=== PATIENT | female | born 1970 | race Caucasian/White ===

== ENCOUNTER → 2018-10-08 07:02 | Outpatient (CLI) | payer OTHER, MEDICAID, SELFPAY ==
[2018-10-08 09:04] LABS: Add Manual Diff / Slide Review NO; Basophils Absolute Auto 0 /uL (0-100); Basophils Percent Auto 0.5 % (0-2); Eosinophils Absolute Auto 100 /uL (0-450); Eosinophils Percent Auto 1.3 % (2-4); Hemoglobin 12.4 g/dL (12.0-16.0); Lymphocytes Absolute Auto 1400 /uL (1100-4500); Lymphocytes Percent Auto 28.9 % (25-40); Mean Corpuscular HGB Conc 33.4 % (30-36); Mean Corpuscular Volume 92.8 fL (80-100); Monocytes Absolute Auto 300 /uL (0-900); Monocytes Percent Auto 7.1 % (3-14); Neutrophils Absolute Auto 3000 /uL (1500-7000); Neutrophils Percent Auto 62.2 % (50-75); Platelet Count 240 X10^3/uL (150-400); Red Blood Cell Count 3.99 X10^6/uL (4.0-5.2); White Blood Cell Count 4.9 X10^3/uL (4.5-11.0)
[2018-10-08 09:11] LABS: Alanine Aminotransferase 26 IU/L (9-52); Albumin 4.4 g/dL (3.5-5.0); Albumin Globulin Ratio 1.7 (1.0-2.8); Alkaline Phosphatase 31 U/L (38-126); Aspartate Aminotransferase 26 IU/L (14-36); Bilirubin Total 0.6 mg/dL (0.2-1.3); Blood Urea Nitrogen 9 mg/dL (7-17); Calcium 9.2 mg/dL (8.4-10.2); Carbon Dioxide 29 mmol/L (22-32); Chloride 102 mmol/L (98-107); Cholesterol 176 mg/dL (140-199); Estimated Glomerular Filt Rate > 60.0 mL/min (>60); Globulin 2.6 g/dL (1.7-4.1); Glucose 85 mg/dL (70-100); HDL Cholesterol 65 mg/dL (40-60); HEMOLYSIS < 15 (0-50); LDL Cholesterol Calculated 102 mg/dL (<100); Potassium 4.3 mmol/L (3.4-5.1); Sodium 139 mmol/L (137-145); Triglycerides 46 mg/dL (35-150)
[2018-10-08 09:55] LABS: Free T4, Direct Thyroxine 0.82 ng/dL (0.78-2.19)
[2018-10-08 10:25] LABS: Thyroid Stimulating Hormone 3.15 uIU/mL (0.47-4.68)
[2018-10-09 14:05] LABS: Thyroid Peroxidase Antibodies 1 IU/mL (< 9)
== END ==
PROVIDERS: Family Provider Internal Medicine; PCP Internal Medicine
DX: Z13.228 Encounter for screening for other metabolic disorders (principal); Z13.220 Encounter for screening for lipoid disorders; Z13.0 Encounter for screening for diseases of the blood and blood-forming organs and certain disorders involving the immune mechanism; Z13.29 Encounter for screening for other suspected endocrine disorder
CPT/HCPCS: 36415; 80053; 80061; 84439; 84443; 84481; 85025; 86376

== ENCOUNTER → 2020-06-24 09:56 | Outpatient (CLI) | payer OTHER, MEDICAID, SELFPAY ==
[2020-06-24 10:52] LABS: COVID19 -Nasal RAPID Negative (Negative)
== END ==
PROVIDERS: Family Provider Nurse Practitioner Family; PCP Nurse Practitioner Family; Visit Provider Surgery
DX: Z01.812 Encounter for preprocedural laboratory examination (principal); Z20.828 Contact with and (suspected) exposure to other viral communicable diseases
CPT/HCPCS: 87635; C9803

== ENCOUNTER 2020-06-25 06:42 | Day surgery (SDC) | payer OTHER, MEDICAID, SELFPAY ==
[2020-06-25] VITALS (7 sets, daily range): BP systolic 90–126; BP diastolic 51–71; PULSE 56–78; RESP 12–16; TEMP 36.6–36.7; O2SAT 99–100; BMI 22.3
[2020-06-25] MEDS: SODIUM CHLORIDE 0.9% 1,000 ML 200 ML IV (07:11)
--- NOTE | 2020-06-25 07:38 | PM.HP.1 ---
History of Present Illness History of Present Illness Date Patient Seen: 06/25/20 Time Patient Seen: 07:38 Chief complaint: [facility] [place] Narrative: This is a 50-year-old woman who has never had a colonoscopy. She has history of migraines, social phobia, PVCs, irregular menstrual cycle, anxiety, allergies, eczema. She comes in with a complaint of difficulty passing her stools for the last few months. She says that she ?loses momentum? and is not able to complete having a bowel movement. She has recently started pelvic floor physiotherapy. She has not seen a black ash burner operator doctor to rule out rectocele. She has never been or given . She denies any incontinence of urine, she denies any incontinence of stool, she denies any melena, hematochezia, anal pain with bowel movements. She does report an occasional hemorrhoid, which presents as irritation and discomfort of the anal area. She says she has a very high fiber diet, and takes to level 2 tbsp of psyllium husk in 8 oz of water twice daily. She denies prolonged sitting on the toilet, but says it may take her 5 minutes to have a bowel movement because of difficulty ?passing everything.? She would sometimes digitally disimpact herself, but has stopped doing that since her primary care provider recommended that she stop doing that. She has no known family history of colon polyps or colon cancers, but she says her mother has never had a colonoscopy. ROS: Positive for night sweats, lower extremity swelling, changes in bowel habits, irregular menses, Thirteen system review is otherwise negative other than as mentioned below and in HPI. PE: GENERAL: Well groomed and cooperative. Appears stated age. Answers questions promptly and appropriately. Vital signs noted. HENT: Normocephalic, atraumatic. Hearing intact. EYES: Conjunctiva pink, sclera white, no periorbital swelling. CARDIOVASCULAR: Regular rate. No pedal edema. RESPIRATORY: Non-tachypneic, breathing comfortably on room air. GASTROINTESTINAL: Abdomen soft and non-distended GENITALURINARY: No flank tenderness. MUSCULOSKELETAL: Equal tone and mass bilaterally. SKIN: Warm, dry, soft, appropriate color for ethnicity. No other lesions, rashes, or wounds. NEURO: Alert and Oriented X 3. No gross sensory deficits, or cognitive issues. PSYCH: Appropriate affect and mood. Patient History Medical History Abnormal Pap smear of cervix (~1999) Allergic reaction to bee sting Allergic rhinitis (06/06/17) Allergies (~1999) Anxiety (~1989) Eczema Frequent ventricular premature beats (09/30/14) H/O migraine Hemorrhoids (09/30/14) Human papilloma virus (~1999) Incomplete passage of stool Irregular menstrual cycle (~2017) Migraines (~2017) PVCs (premature ventricular contractions) (~2016) Screening for malignant neoplasm of colon Social phobia (09/30/14) Surgical History Anesthesia History of breast augmentation (~1991) History of tonsillectomy (~1970) Status post breast biopsy (~2012) Status post laparoscopy (~1996) Status post loop electrosurgical excision procedure (LEEP) of cervix (~1996) Family & Social History Family History Father Age: 98 Hypertension Arthritis Pernicious anemia Spinal stenosis Grandfather Hypertension High cholesterol Grandmother Enlarged heart Mother Age: 96 Hypertension High cholesterol Fibromyalgia Arthritis Sister Age: 53 Arthritis Bradycardia Sick sinus syndrome Sister Age: 57 Obese Mental health problem Sister Age: 67 Meniere disease Osteopenia Osteoarthritis Tobacco & Substance use: Smoking Status Former smoker alcohol intake current Meds Home Medications and Allergies Home Medications Medication Instructions Recorded Confirmed Type propranolol 20 mg tablet 20 mg PO SEE INSTRUCTIONS PRN #30 04/19/18 06/25/20 Rx tab ascorbate calcium (vitamin C) 500 1 gram PO DAILY tab 05/20/20 06/25/20 History mg tablet biotin 2,500 mcg capsule 5,000 mcg PO DAILY 05/20/20 06/25/20 History black cohosh 200 mg capsule 125 mg PO QID 05/20/20 06/25/20 History npsohfz-navnpuqvi-sdim tablet 0.66 tab PO DAILY 05/20/20 06/25/20 History cetirizine 10 mg capsule 10 mg PO DAILY PRN 05/20/20 06/25/20 History cholecalciferol (vitamin D3) 250 125 mcg PO 2XW 05/20/20 06/25/20 History mcg (10,000 unit) capsule glucosamine HCl 750 mg tablet 750 mg PO BID tab 05/20/20 06/25/20 History multivitamin with iron 1 tab PO DAILY 05/20/20 06/25/20 History red clover 1,000 mg capsule 500 mg PO DAILY 05/20/20 06/25/20 History vitamin B complex 1 cap PO DAILY 05/20/20 06/25/20 History melatonin 3 mg PO BEDTIME PRN 06/25/20 06/25/20 History sumatriptan succinate See Rx Instructions .ROUTE .COMPLEX 06/25/20 06/25/20 History Allergies Allergy/AdvReac Type Severity Reaction Status Date / Time adhesive AdvReac Mild Rash Verified 06/25/20 07:09 Exam Vital Signs (past 8 hours): - 06/25/20 07:26 Temperature 98.0 F Pulse Rate 70 Respiratory Rate 14 Blood Pressure 126/71 Pulse Oximetry 100 Oxygen Delivery Method Room Air Assessment & Plan Assessment and plan (1) Screening for malignant neoplasm of colon: Status: Acute (2) Incomplete passage of stool: Problem details: intermittent Status: Acute Assessment & Plan narrative: Risks and benefits of screening colonoscopy and possible polypectomy were discussed with the patient including risk of bleeding, perforation, need for additional procedures, risks of anesthesia. The patient desires to proceed with the colonoscopy procedure. COVID-19 COVID-19 status: Negative Result date/Date tested (Pos, Neg/Pending): 06/24/20 Time Spent With Patient Time with patient: 15-24 minutes Quality VTE Deep Vein Thrombosis/Pulmonary Embolism Present on Admission: No
--- NOTE | 2020-06-25 07:43 | P.OP.ENDO_ITS ---
Operative Date/Time/Diagnoses Date of procedure: 06/25/20 Time of procedure: 07:47 Pre-op diagnosis: Average risk for colon cancer, never had a screening colonoscopy Post-op diagnosis: other (Normal colon) Procedure & Clinicians Study performed: Colonoscopy Procedural sedation performed by the endoscopy Same procedure as scheduled: Yes Indications: Average risk of colon cancer, never had a screening colonoscopy Surgeon: Thalia Garcia Procedure Notes SCOAP/Timeout: Performed Procedure in detail: The patient was brought to the room and placed in left lateral decubitus position with all bony prominences padded. A time-out was performed and then the patient was given procedural sedation starting with 4 mg of Versed and 100 mcg of fentanyl. Total of 10 mg of Versed and 200 micro g of fentanyl were given for the entire procedure. Vitals were monitored throughout the procedure and remained stable. Once adequately sedated, the procedure was begun. A rectal exam was performed revealing no abnormalities. The colonoscope was then introduced to the rectum and advanced to the cecum in the usual fashion. The cecum was identified by the appendiceal orifice, the mucosal tri- fold, and the ileocecal valve. The scope was then retracted while rotating side to side and examining each mucosal fold. No polyps, masses, or diverticula were seen. At the conclusion of the procedure retroflexion was performed and small grade 1-2 internal hemorrhoids without stigmata of bleeding were seen. The scope was then withdrawn from the rectum the procedure was concluded. The patient tolerated the procedure well and was transferred to the PACU in stable condition. Scope withdrawal time: 8 Sedation minutes: 27 Specimen(s): none sent Complications: none Impression: Normal colon Post-procedure Recommendations: Colonscopy in 10 years (Unless otherwise clinically indicated) Follow up: as needed Disposition: PACU
[2020-06-25] MEDS: fentaNYL 250 MCG/5 ML INJ IV (08:07)
[2020-06-25] MEDS: MIDAZOLAM 5 MG/5 ML VIAL IV (08:07)
--- NOTE | 2020-06-25 09:01 | SUR.PHASEII ---
Stable Phase 2, VSS, no dizziness, belly soft and tolerating juice. Pt dressed when ready and left in stable condition.
== END 2020-06-25 09:08 | disposition home or self-care (01) ==
PROVIDERS: Family Provider Nurse Practitioner Family; PCP Nurse Practitioner Family; Referring Provider Nurse Practitioner Family; Visit Provider Surgery
PROC: 0DJD8ZZ Inspection of Lower Intestinal Tract, Via Natural or Artificial Opening Endoscopic (ICD-10-PCS; CPT 45378; principal; 2020-06-25 07:45)
DX: Z12.11 Encounter for screening for malignant neoplasm of colon (principal); K64.0 First degree hemorrhoids
CPT/HCPCS: 45378; 99152; 99153; J2250; J3010

== ENCOUNTER 2020-08-31 13:45 | Outpatient (RCR) | payer OTHER, MEDICAID, SELFPAY ==
--- NOTE | 2020-06-22 13:45 | PT.OPPOC ---
Physical, Occupational & Speech Therapy At [facility] Current Diagnoses Incomplete defecation (06/22/20) Visit Care Team Role Provider Type EDILIA Hameed Attending Provider Advanced Commercial Ocean Clammer Family Provider Primary Care Provider Referring Provider Specialty: Family Practice Address: [address] [place] [address], [id number] Email: [email or web address] Plan Of Care PT-OP-T Assessment and Plan Start: 06/22/20 13:01 Freq: Status: Active Protocol: Document 06/22/20 13:00 [facility] (Rec: 06/30/20 11:07 [facility] [id number]) Physical Therapy Assessment Goals pt is lacking a home program for her pelvic floor Impairment Elli is lacking a program for her pelvic floor Mcfp Goal (LTG) Elli is educated on both relaxed awareness of her pelvic floor and ability to sustain a contraction of her pelvic floor for 10 seconds to provide good support for the rectum. LTG Duration 8 weeks myofascial restrictions in the diaphragm and large intestine Impairment myofascial restrictions in the colon and large intestines Signaling Design Engineer Goal (LTG) Improve mobility of the diaphragm and fascia over the large intestines. LTG Duration 8 weeks Inablility to fully empty the bowels Impairment inability to fully empty the bowels Mcfp Goal (LTG) Using self massage techniques, squatty potty, diaphragmatic breathing, pelvic floor relaxation Elli is able to fully empty her bowels LTG Duration 8 weeks Assessment Summary Assessment Elli is a 50 year old female who presents to PT today with difficulty fully passing her stools the past few months. She states she looses momentum and is not able to fully empty her bowels . She is set for a colonoscopy as she has never had one. She denies any incontinence of urine or stool . Elli was not aware we would be doing a pelvic exam today in PT and wished to wait until her next visit to do so . She denies any pelvic pressure or heaviness but I will assess for a rectocele and if she has any pelvic floor guarding. She did have myofascial restrictions across her abdomen and had difficulty with diaphragm excursion with deep breathing. She also had tension in the fascia over her colon. She was shown a self massage over her colon today to help facilitate bowl movements, shown how to use a squatty potty to help align her descending colon, and diaphragmatic breathing. Next visit her pelvic floor will be assessed as well. Physical Therapy Plan Frequency and Duration Frequency of Treatment 1x/Week Duration of Treatment 8 Plan of Care Start Date 06/22/20 Plan of Care End Date 08/17/20 Therapeutic Interventions Therapeutic Interventions Home Exercise Program,Manual Therapy,Neuromuscular Re- education,Self-Care/Home Management,Therapeutic Exercises Modalities Biofeedback Plan of Care Dates Plan of Care Start Date 06/22/20 Plan of Care End Date 08/17/20 Electronically Signed by: Neisha Rice, PT 06/30/20 [id number] Please Sign and Return: I have reviewed this Plan of Care and certify that the skilled therapy services above are required to meet the patient?s needs. Physician Signature Date Printed Name and Credentials Clinical Instructor Signature Printed Name and Credentials
--- NOTE | 2020-06-22 13:45 | PT.OIE ---
Current Diagnoses Incomplete defecation (06/22/20) Past Medical History (Last Reviewed 06/25/20 @ 07:40 by Thalia Garcia MD) Abnormal Pap smear of cervix (~1999) Allergic reaction to bee sting Allergic rhinitis (06/06/17) Allergies (~1999) Anxiety (~1989) Eczema Frequent ventricular premature beats (09/30/14) H/O migraine Hemorrhoids (09/30/14) Human papilloma virus (~1999) Incomplete passage of stool Irregular menstrual cycle (~2017) Migraines (~2017) PVCs (premature ventricular contractions) (~2016) Screening for malignant neoplasm of colon Social phobia (09/30/14) Past Surgical History (Last Reviewed 06/25/20 @ 07:40 by Thalia Garcia MD) Anesthesia History of breast augmentation (~1991) History of tonsillectomy (~1970) Status post breast biopsy (~2012) Status post laparoscopy (~1996) Status post loop electrosurgical excision procedure (LEEP) of cervix (~1996) Visit Care Team Role Provider Type EDILIA Hameed Attending Provider Advanced Finish Patcher Family Provider Primary Care Provider Referring Provider Specialty: Family Practice Address: [address] [place] [address] Email: [email or web address] Physical Therapy Initial Evaluation PT-OP-A Visit Information Start: 06/22/20 13:01 Freq: Status: Active Protocol: Document 06/22/20 17:20 [facility] (Rec: 06/22/20 17:21 [facility] [id number]) Out-Patient Physical Therapy Visit Information Visit Information Visit Type Initial Evaluation Visit Start Time 13:00 Visit Stop Time 13:45 Total Visit Minutes 45 Visit Number 1 Evaluation Information Evaluation Date 06/22/20 PT-OP-B Current Condition Start: 06/22/20 13:01 Freq: Status: Active Protocol: Document 06/22/20 13:02 [facility] (Rec: 06/22/20 13:21 [facility] [id number]) Current Condition History of Current Condition Onset Date 6 months ago. Current Complaints not fully emptying her bowels History of Current Condition pt complaints the urge for a bowel movement can be strong but then she loses momentum and she feels like is not fully emptying. It is not every time but it is new enough. She will have a colonoscopy and and did have a rectal exam. Dr. Zamora at [facility]. She has noticed some increase in intensity of urgency to void. Hx of tubal sterilization, leap procedure 1996. PT-OP-I Pelvic Floor Start: 06/22/20 13:01 Freq: Status: Active Protocol: Document 06/22/20 13:00 [facility] (Rec: 06/30/20 11:07 [facility] [id number]) Pelvic Floor Assessment Bowel Bowel Surgery No Other Bowel Symptoms pt reports she looses momentum when she has a bowel movement and is not able to fully empty her bowels. She does report a occasional hemorrhoid which presents as a irritation and discomfort of the anal area Bowel Movement Frequency one per day PT-OP-J Posture/Palpation/Skin Start: 06/22/20 13:01 Freq: Status: Active Protocol: Document 06/22/20 13:00 [facility] (Rec: 06/30/20 11:07 [facility] [id number]) Palpation Assessment Location suprapubic fascia Palpation Location myofascial tightness over the suprapubic fascia over the bladder Palpation Findings Soft Tissue Tightness large intestine Palpation Location palpation over the large intestine via the abdominal wall Palpation Findings Soft Tissue Tightness Palpation Details soft tissue tightness in fascia over the transverse and descending colon. PT-OP-M Strength Start: 06/22/20 13:01 Freq: Status: Active Protocol: Document 06/22/20 13:00 [facility] (Rec: 06/30/20 11:07 [facility] [id number]) Trunk Strength Trunk Manual Muscle Testing Core Stabilization pelvic floor needs assessment, pt would like to wait until the next visit for this Comments decreased diaphragmatic excursion and tightness of the diaphragm PT-OP-T Assessment and Plan Start: 06/22/20 13:01 Freq: Status: Active Protocol: Document 06/22/20 13:00 [facility] (Rec: 06/30/20 11:07 [facility] [id number]) Physical Therapy Assessment Goals pt is lacking a home program for her pelvic floor Impairment Elli is lacking a program for her pelvic floor Fdc Goal (LTG) Elli is educated on both relaxed awareness of her pelvic floor and ability to sustain a contraction of her pelvic floor for 10 seconds to provide good support for the rectum. LTG Duration 8 weeks myofascial restrictions in the diaphragm and large intestine Impairment myofascial restrictions in the colon and large intestines Fdc Goal (LTG) Improve mobility of the diaphragm and fascia over the large intestines. LTG Duration 8 weeks Inablility to fully empty the bowels Impairment inability to fully empty the bowels Clerical Warehouseman Goal (LTG) Using self massage techniques, squatty potty, diaphragmatic breathing, pelvic floor relaxation Elli is able to fully empty her bowels LTG Duration 8 weeks Assessment Summary Assessment Elli is a 50 year old female who presents to PT today with difficulty fully passing her stools the past few months. She states she looses momentum and is not able to fully empty her bowels . She is set for a colonoscopy as she has never had one. She denies any incontinence of urine or stool . Elli was not aware we would be doing a pelvic exam today in PT and wished to wait until her next visit to do so . She denies any pelvic pressure or heaviness but I will assess for a rectocele and if she has any pelvic floor guarding. She did have myofascial restrictions across her abdomen and had difficulty with diaphragm excursion with deep breathing. She also had tension in the fascia over her colon. She was shown a self massage over her colon today to help facilitate bowl movements, shown how to use a squatty potty to help align her descending colon, and diaphragmatic breathing. Next visit her pelvic floor will be assessed as well. Physical Therapy Plan Frequency and Duration Frequency of Treatment 1x/Week Duration of Treatment 8 Plan of Care Start Date 06/22/20 Plan of Care End Date 08/17/20 Therapeutic Interventions Therapeutic Interventions Home Exercise Program,Manual Therapy,Neuromuscular Re- education,Self-Care/Home Management,Therapeutic Exercises Modalities Biofeedback
--- NOTE | 2020-07-13 16:48 | PT.OTN ---
Current Diagnoses Incomplete defecation (07/13/20) Physical Therapy Treatment Note PT-OP-A Visit Information Start: 06/22/20 13:01 Freq: Status: Active Protocol: Document 07/13/20 16:26 [facility] (Rec: 07/13/20 16:48 [facility] [id number]) Out-Patient Physical Therapy Visit Information Visit Information Visit Type Treatment Note Visit Start Time 15:20 Visit Stop Time 16:05 Total Visit Minutes 45 Visit Number 2 PT-OP-B Current Condition Start: 06/22/20 13:01 Freq: Status: Active Protocol: Document 06/22/20 13:02 [facility] (Rec: 06/22/20 13:21 [facility] [id number]) Current Condition History of Current Condition Onset Date 6 months ago. Current Complaints not fully emptying her bowels History of Current Condition pt complaints the urge for a bowel movement can be strong but then she loses momentum and she feels like is not fully emptying. It is not every time but it is new enough. She will have a colonoscopy and and did have a rectal exam. Dr. Zamora at [facility]. She has noticed some increase in intensity of urgency to void. Hx of tubal sterilization, leap procedure 1996. PT-OP-C Subjective Start: 06/22/20 13:01 Freq: Status: Active Protocol: Document 07/13/20 16:26 [facility] (Rec: 07/13/20 16:48 [facility] [email or web address]) OP-PT Subjective Patient Comments Patient Comments Elli reports she had her colonoscopy and it was negative. She has tried the ILU massage, no change in symptoms at this point. She does report that she tends to clench her pelvis region and abdominal wall PT-OP-I Pelvic Floor Start: 06/22/20 13:01 Freq: Status: Active Protocol: Document 06/22/20 13:00 [facility] (Rec: 06/30/20 11:07 [facility] [id number]) Pelvic Floor Assessment Bowel Bowel Surgery No Other Bowel Symptoms pt reports she looses momentum when she has a bowel movement and is not able to fully empty her bowels. She does report a occasional hemorrhoid which presents as a irritation and discomfort of the anal area Bowel Movement Frequency one per day PT-OP-J Posture/Palpation/Skin Start: 06/22/20 13:01 Freq: Status: Active Protocol: Document 06/22/20 13:00 [facility] (Rec: 06/30/20 11:07 [facility] [email or web address]) Palpation Assessment Location suprapubic fascia Palpation Location myofascial tightness over the suprapubic fascia over the bladder Palpation Findings Soft Tissue Tightness large intestine Palpation Location palpation over the large intestine via the abdominal wall Palpation Findings Soft Tissue Tightness Palpation Details soft tissue tightness in fascia over the transverse and descending colon. PT-OP-M Strength Start: 06/22/20 13:01 Freq: Status: Active Protocol: Document 06/22/20 13:00 [facility] (Rec: 06/30/20 11:07 [facility] [id number]) Trunk Strength Trunk Manual Muscle Testing Core Stabilization pelvic floor needs assessment, pt would like to wait until the next visit for this Comments decreased diaphragmatic excursion and tightness of the diaphragm PT-OP-Q Treatments Start: 06/22/20 13:01 Freq: Status: Active Protocol: Document 07/13/20 16:26 [facility] (Rec: 07/13/20 16:48 [facility] [id number]) Therapeutic Exercises Supine Exercises pelvic floor long holds Supine Exercise Name long holds x 10 second hold and 10 second relax Comments average work on EMG biofeedback us 18.2 and max of 56.2 Manual Therapy Treatment Manual Techniques manual pelvic floor evaluation Type manual pelvic floor assessment Comments rectocele present grade 1 , pt able to contract all landeros of the levator ani but is weaker in the posterior wall Self-Care/Home Management Treatment Education Patient Education Home Exercise Program Other Education pt was educated on elevating her pelvis to decompress the pelvic organs PT-OP-T Assessment and Plan Start: 06/22/20 13:01 Freq: Status: Active Protocol: Document 07/13/20 16:26 [facility] (Rec: 07/13/20 16:48 [facility] [email or web address]) Physical Therapy Assessment Assessment Summary Assessment Elli is able to facilitate all parts of her pelvic floor but tested 3/5 MMT for the posterior wall and presented with a grade 1 rectocele. She lacks full endurance of the pelvic floor and tends to substitute with her glutes and abs for pelvic floor contraction. She was educated in decompressing the pelvis with a yoga block to take pressure off her pelvic organs. Physical Therapy Plan Frequency and Duration Frequency of Treatment 1x/Week Duration of Treatment 8 Plan of Care Start Date 06/22/20 Plan of Care End Date 08/17/20 Next Visit Focus/Plan Next Note Type Treatment Note Next Visit Plan trial of pelvic floor work over the bolster, watch abdominal wall for substitution, MFR over the abdominal wall, diaphragm
--- NOTE | 2020-07-20 17:27 | PT.OTN ---
Current Diagnoses Incomplete defecation (07/20/20) Physical Therapy Treatment Note PT-OP-A Visit Information Start: 06/22/20 13:01 Freq: Status: Active Protocol: Document 07/20/20 15:21 [facility] (Rec: 07/20/20 15:29 [facility] [id number]) Out-Patient Physical Therapy Visit Information Visit Information Visit Type Treatment Note Visit Start Time 15:15 Visit Stop Time 16:00 Total Visit Minutes 45 Visit Number 3 PT-OP-B Current Condition Start: 06/22/20 13:01 Freq: Status: Active Protocol: Document 06/22/20 13:02 [facility] (Rec: 06/22/20 13:21 [facility] [id number]) Current Condition History of Current Condition Onset Date 6 months ago. Current Complaints not fully emptying her bowels History of Current Condition pt complaints the urge for a bowel movement can be strong but then she loses momentum and she feels like is not fully emptying. It is not every time but it is new enough. She will have a colonoscopy and and did have a rectal exam. Dr. Zamora at [facility]. She has noticed some increase in intensity of urgency to void. Hx of tubal sterilization, leap procedure 1996. PT-OP-C Subjective Start: 06/22/20 13:01 Freq: Status: Active Protocol: Document 07/20/20 15:21 [facility] (Rec: 07/20/20 15:29 [facility] [id number]) OP-PT Subjective Patient Comments Patient Comments She notes things are improving a little bit, has gotten her hips a little higher when sitting on the toilet and this has helped. Aug 11 she see' s Gail Duval for a recheck Patient Reported Progress Improving PT-OP-I Pelvic Floor Start: 06/22/20 13:01 Freq: Status: Active Protocol: Document 06/22/20 13:00 [facility] (Rec: 06/30/20 11:07 [facility] [id number]) Pelvic Floor Assessment Bowel Bowel Surgery No Other Bowel Symptoms pt reports she looses momentum when she has a bowel movement and is not able to fully empty her bowels. She does report a occasional hemorrhoid which presents as a irritation and discomfort of the anal area Bowel Movement Frequency one per day PT-OP-J Posture/Palpation/Skin Start: 06/22/20 13:01 Freq: Status: Active Protocol: Document 06/22/20 13:00 [facility] (Rec: 06/30/20 11:07 [facility] [id number]) Palpation Assessment Location suprapubic fascia Palpation Location myofascial tightness over the suprapubic fascia over the bladder Palpation Findings Soft Tissue Tightness large intestine Palpation Location palpation over the large intestine via the abdominal wall Palpation Findings Soft Tissue Tightness Palpation Details soft tissue tightness in fascia over the transverse and descending colon. PT-OP-M Strength Start: 06/22/20 13:01 Freq: Status: Active Protocol: Document 06/22/20 13:00 [facility] (Rec: 06/30/20 11:07 [facility] [id number]) Trunk Strength Trunk Manual Muscle Testing Core Stabilization pelvic floor needs assessment, pt would like to wait until the next visit for this Comments decreased diaphragmatic excursion and tightness of the diaphragm PT-OP-Q Treatments Start: 06/22/20 13:01 Freq: Status: Active Protocol: Document 07/20/20 17:18 [facility] (Rec: 07/20/20 17:27 [facility] [id number]) Therapeutic Exercises Supine Exercises pelvic floor long holds Supine Exercise Name long holds x 10 second hold and 10 second relax Comments average work on EMG biofeedback us 18.2 and max of 56.2 Manual Therapy Treatment Soft Tissue Mobilization MFR over the left side of the colon Body Location MFR left side of colon Mobilization Type Myofascial Release Body Position Supine Self-Care/Home Management Treatment Education Patient Education Home Exercise Program Other Education education on rectal prolapse, elevation of pelvis, castor oil pack on abdomen PT-OP-T Assessment and Plan Start: 06/22/20 13:01 Freq: Status: Active Protocol: Document 07/20/20 17:18 [facility] (Rec: 07/20/20 17:27 [facility] [id number]) Physical Therapy Assessment Assessment Summary Assessment Elli is reporting that she has been better able to fully empty her bowels. She feels like sidelying is better for her for pelvic floor contractions. She has a small amount of resting tone of the levator ani. She may benefit from happy baby pose to relax this fully. I worked on releasing the left side of the descending colon today as well. Physical Therapy Plan Frequency and Duration Frequency of Treatment 1x/Week Duration of Treatment 8 Plan of Care Start Date 06/22/20 Plan of Care End Date 08/17/20 Therapeutic Interventions Therapeutic Interventions Home Exercise Program,Manual Therapy,Neuromuscular Re- education,Self-Care/Home Management,Therapeutic Exercises Modalities Biofeedback Next Visit Focus/Plan Next Note Type Treatment Note Next Visit Plan MFR over the abdominal wall, happy baby, work into pelvic floor contractions with abdominal stabilization. Pt has 2 visits left then rechecks with her
--- NOTE | 2020-07-28 11:50 | PT.OTN ---
Current Diagnoses Incomplete defecation (07/27/20) Physical Therapy Treatment Note PT-OP-A Visit Information Start: 06/22/20 13:01 Freq: Status: Active Protocol: Document 07/27/20 15:15 [facility] (Rec: 07/28/20 11:35 [facility] [id number]) Out-Patient Physical Therapy Visit Information Visit Information Visit Type Treatment Note Visit Start Time 15:15 Visit Stop Time 16:00 Total Visit Minutes 45 Visit Number 4 PT-OP-B Current Condition Start: 06/22/20 13:01 Freq: Status: Active Protocol: Document 06/22/20 13:02 [facility] (Rec: 06/22/20 13:21 [facility] [id number]) Current Condition History of Current Condition Onset Date 6 months ago. Current Complaints not fully emptying her bowels History of Current Condition pt complaints the urge for a bowel movement can be strong but then she loses momentum and she feels like is not fully emptying. It is not every time but it is new enough. She will have a colonoscopy and and did have a rectal exam. Dr. Zamora at [facility]. She has noticed some increase in intensity of urgency to void. Hx of tubal sterilization, leap procedure 1996. PT-OP-C Subjective Start: 06/22/20 13:01 Freq: Status: Active Protocol: Document 07/27/20 15:24 [facility] (Rec: 07/27/20 15:24 [facility] [id number]) OP-PT Subjective Patient Comments Patient Comments pt reports she is getting into her routine with all her stretches and exercises. She has been working on trying to relax her abdominal muscles when sitting and standing at rest. She notes that her symptoms continue to improve and she is noting more of a full bowel movement now. Patient Reported Progress Improving PT-OP-I Pelvic Floor Start: 06/22/20 13:01 Freq: Status: Active Protocol: Document 06/22/20 13:00 [facility] (Rec: 06/30/20 11:07 [facility] [id number]) Pelvic Floor Assessment Bowel Bowel Surgery No Other Bowel Symptoms pt reports she looses momentum when she has a bowel movement and is not able to fully empty her bowels. She does report a occasional hemorrhoid which presents as a irritation and discomfort of the anal area Bowel Movement Frequency one per day PT-OP-J Posture/Palpation/Skin Start: 06/22/20 13:01 Freq: Status: Active Protocol: Document 06/22/20 13:00 [facility] (Rec: 06/30/20 11:07 [facility] [email or web address]) Palpation Assessment Location suprapubic fascia Palpation Location myofascial tightness over the suprapubic fascia over the bladder Palpation Findings Soft Tissue Tightness large intestine Palpation Location palpation over the large intestine via the abdominal wall Palpation Findings Soft Tissue Tightness Palpation Details soft tissue tightness in fascia over the transverse and descending colon. PT-OP-M Strength Start: 06/22/20 13:01 Freq: Status: Active Protocol: Document 06/22/20 13:00 [facility] (Rec: 06/30/20 11:07 [facility] [email or web address]) Trunk Strength Trunk Manual Muscle Testing Core Stabilization pelvic floor needs assessment, pt would like to wait until the next visit for this Comments decreased diaphragmatic excursion and tightness of the diaphragm PT-OP-Q Treatments Start: 06/22/20 13:01 Freq: Status: Active Protocol: Document 07/27/20 15:15 [facility] (Rec: 07/28/20 11:35 [facility] [email or web address]) Therapeutic Exercises Supine Exercises TA facilitation Supine Exercise Name TA facilitation, with marches and heel slides Comments pt demonstrating good contraction of the pelvic floor and TA happy baby Supine Exercise Name happy baby stretch pelvic floor long holds Supine Exercise Name long holds x 10 second hold and 10 second relax Comments average work on EMG biofeedback us 18.2 and max of 56.2 Manual Therapy Treatment Soft Tissue Mobilization MFR over the left side of the colon Body Location MFR left side of colon Mobilization Type Myofascial Release Body Position Supine Self-Care/Home Management Treatment Education Patient Education Home Exercise Program Caregiver Education pt to continue with self ILU massage, ther ex, squatty potty and gentle stretches as well as relaxed awareness of her lower abdominal wall and pelvic floor. PT-OP-T Assessment and Plan Start: 06/22/20 13:01 Freq: Status: Active Protocol: Document 07/27/20 15:25 [facility] (Rec: 07/27/20 16:08 [facility] [id number]) Physical Therapy Assessment Goals pt is lacking a home program for her pelvic floor Impairment Elli is lacking a program for her pelvic floor Waxed Bag Machine Operator Goal (LTG) Elli is educated on both relaxed awareness of her pelvic floor and ability to sustain a contraction of her pelvic floor for 10 seconds to provide good support for the rectum. GOAL MET LTG Duration 8 weeks myofascial restrictions in the diaphragm and large intestine Impairment myofascial restrictions in the colon and large intestines [facility] Goal (LTG) Improve mobility of the diaphragm and fascia over the large intestines. GOAL MET LTG Duration 8 weeks Inablility to fully empty the bowels Impairment inability to fully empty the bowels [facility] Goal (LTG) Using self massage techniques, squatty potty, diaphragmatic breathing, pelvic floor relaxation Elli is able to fully empty her bowels. Excellent progress as Elli notes it is becoming easier to fully empty her bowels. LTG Duration 8 weeks Assessment Summary Assessment Elli is making good overall progress with improved ability to fully empty her bowels. Treatment has focused on supporting her bowels with pelvic floor strengthening, toilet positioning with a squatty potty position to help with defecation, self abdominal massage, relaxed awareness of the pelvic floor and abdominal wall. She will continue to work on pelvic floor strengthening to help support the posterior wall of the pelvic floor and to give support to the rectum. Elli has a follow up visit with me in one month to progress pelvic floor strengthening in more upright positions. I will recheck the tone of her pelvic floor again at that time. Treatment will continue if needed for dynamic strengthening in upright positions. Thank you for this referral. Physical Therapy Plan Frequency and Duration Frequency of Treatment 1x/Week Duration of Treatment 8 Plan of Care Start Date 07/27/20 Plan of Care End Date 09/28/20 Therapeutic Interventions Therapeutic Interventions Home Exercise Program,Manual Therapy,Neuromuscular Re- education,Self-Care/Home Management,Therapeutic Exercises Modalities Biofeedback Next Visit Focus/Plan Next Note Type Treatment Note Next Visit Plan recheck tone and strength of the levator ani muscles, recheck for rectocele, begin work on upright positioning for strengthening the pelvic floor in dynamic positions
--- NOTE | 2020-07-28 11:50 | PT.OPPOC ---
Physical, Occupational & Speech Therapy At [facility] Current Diagnoses Incomplete defecation (07/27/20) Visit Care Team Role Provider Type EDILIA Hameed Attending Provider Advanced Black Leather Buffer Family Provider Primary Care Provider Referring Provider Specialty: Family Practice Address: [address] [place] [address], [id number] Email: [email or web address] Plan Of Care PT-OP-T Assessment and Plan Start: 06/22/20 13:01 Freq: Status: Active Protocol: Document 07/27/20 15:25 [facility] (Rec: 07/27/20 16:08 [facility] [id number]) Physical Therapy Assessment Goals pt is lacking a home program for her pelvic floor Impairment Elli is lacking a program for her pelvic floor Hot Strip Mill Inspector Goal (LTG) Elli is educated on both relaxed awareness of her pelvic floor and ability to sustain a contraction of her pelvic floor for 10 seconds to provide good support for the rectum. GOAL MET LTG Duration 8 weeks myofascial restrictions in the diaphragm and large intestine Impairment myofascial restrictions in the colon and large intestines Hot Strip Mill Inspector Goal (LTG) Improve mobility of the diaphragm and fascia over the large intestines. Excellent progress LTG Duration 8 weeks Inablility to fully empty the bowels Impairment inability to fully empty the bowels Hot Strip Mill Inspector Goal (LTG) Using self massage techniques, squatty potty, diaphragmatic breathing, pelvic floor relaxation Elli is able to fully empty her bowels. Excellent progress as Elli notes it is becoming easier to fully empty her bowels. LTG Duration 8 weeks Assessment Summary Assessment Elli is making good overall progress with improved ability to fully empty her bowels. Treatment has focused on supporting her bowels with pelvic floor strengthening, toilet positioning with a squatty potty position to help with defecation, self abdominal massage, relaxed awareness of the pelvic floor and abdominal wall. She will continue to work on pelvic floor strengthening to help support the posterior wall of the pelvic floor and to give support to the rectum. Elli has a follow up visit with me in one month to progress pelvic floor strengthening in more upright positions. I will recheck the tone of her pelvic floor again at that time. Treatment will continue if needed for dynamic strengthening in upright positions. Thank you for this referral. Physical Therapy Plan Frequency and Duration Frequency of Treatment 1x/Week Duration of Treatment 8 Plan of Care Start Date 07/27/20 Plan of Care End Date 09/28/20 Therapeutic Interventions Therapeutic Interventions Home Exercise Program,Manual Therapy,Neuromuscular Re- education,Self-Care/Home Management,Therapeutic Exercises Modalities Biofeedback Next Visit Focus/Plan Next Note Type Treatment Note Next Visit Plan recheck tone and strength of the levator ani muscles, recheck for rectocele, begin work on upright positioning for strengthening the pelvic floor in dynamic positions Plan of Care Dates Plan of Care Start Date 07/27/20 Plan of Care End Date 09/28/20 Electronically Signed by: Neisha Rice, PT 07/28/20 [id number] Please Sign and Return: I have reviewed this Plan of Care and certify that the skilled therapy services above are required to meet the patient?s needs. Physician Signature Date Printed Name and Credentials Clinical Instructor Signature Printed Name and Credentials
--- NOTE | 2020-07-28 11:54 | PT.OPPN ---
Current Diagnoses Incomplete defecation (07/27/20) Physical Therapy Progress Note PT-OP-A Visit Information Start: 06/22/20 13:01 Freq: Status: Active Protocol: Document 07/27/20 15:15 [facility] (Rec: 07/28/20 11:35 [facility] [id number]) Out-Patient Physical Therapy Visit Information Visit Information Visit Type Treatment Note Visit Start Time 15:15 Visit Stop Time 16:00 Total Visit Minutes 45 Visit Number 4 PT-OP-B Current Condition Start: 06/22/20 13:01 Freq: Status: Active Protocol: Document 06/22/20 13:02 [facility] (Rec: 06/22/20 13:21 [facility] [id number]) Current Condition History of Current Condition Onset Date 6 months ago. Current Complaints not fully emptying her bowels History of Current Condition pt complaints the urge for a bowel movement can be strong but then she loses momentum and she feels like is not fully emptying. It is not every time but it is new enough. She will have a colonoscopy and and did have a rectal exam. Dr. Zamora at [facility]. She has noticed some increase in intensity of urgency to void. Hx of tubal sterilization, leap procedure 1996. PT-OP-C Subjective Start: 06/22/20 13:01 Freq: Status: Active Protocol: Document 07/27/20 15:24 [facility] (Rec: 07/27/20 15:24 [facility] [id number]) OP-PT Subjective Patient Comments Patient Comments pt reports she is getting into her routine with all her stretches and exercises. She has been working on trying to relax her abdominal muscles when sitting and standing at rest. She notes that her symptoms continue to improve and she is noting more of a full bowel movement now. Patient Reported Progress Improving PT-OP-I Pelvic Floor Start: 06/22/20 13:01 Freq: Status: Active Protocol: Document 06/22/20 13:00 [facility] (Rec: 06/30/20 11:07 [facility] [id number]) Pelvic Floor Assessment Bowel Bowel Surgery No Other Bowel Symptoms pt reports she looses momentum when she has a bowel movement and is not able to fully empty her bowels. She does report a occasional hemorrhoid which presents as a irritation and discomfort of the anal area Bowel Movement Frequency one per day PT-OP-J Posture/Palpation/Skin Start: 06/22/20 13:01 Freq: Status: Active Protocol: Document 06/22/20 13:00 [facility] (Rec: 06/30/20 11:07 [facility] [id number]) Palpation Assessment Location suprapubic fascia Palpation Location myofascial tightness over the suprapubic fascia over the bladder Palpation Findings Soft Tissue Tightness large intestine Palpation Location palpation over the large intestine via the abdominal wall Palpation Findings Soft Tissue Tightness Palpation Details soft tissue tightness in fascia over the transverse and descending colon. PT-OP-M Strength Start: 06/22/20 13:01 Freq: Status: Active Protocol: Document 06/22/20 13:00 [facility] (Rec: 06/30/20 11:07 [facility] [id number]) Trunk Strength Trunk Manual Muscle Testing Core Stabilization pelvic floor needs assessment, pt would like to wait until the next visit for this Comments decreased diaphragmatic excursion and tightness of the diaphragm PT-OP-T Assessment and Plan Start: 06/22/20 13:01 Freq: Status: Active Protocol: Document 07/27/20 15:25 [facility] (Rec: 07/27/20 16:08 [facility] [id number]) Physical Therapy Assessment Goals pt is lacking a home program for her pelvic floor Impairment Elli is lacking a program for her pelvic floor Travel Sales Consultant Goal (LTG) Elli is educated on both relaxed awareness of her pelvic floor and ability to sustain a contraction of her pelvic floor for 10 seconds to provide good support for the rectum. GOAL MET LTG Duration 8 weeks myofascial restrictions in the diaphragm and large intestine Impairment myofascial restrictions in the colon and large intestines Travel Sales Consultant Goal (LTG) Improve mobility of the diaphragm and fascia over the large intestines. Excellent progress LTG Duration 8 weeks Inablility to fully empty the bowels Impairment inability to fully empty the bowels Travel Sales Consultant Goal (LTG) Using self massage techniques, squatty potty, diaphragmatic breathing, pelvic floor relaxation Elli is able to fully empty her bowels. Excellent progress as Elli notes it is becoming easier to fully empty her bowels. LTG Duration 8 weeks Assessment Summary Assessment Elli is making good overall progress with improved ability to fully empty her bowels. Treatment has focused on supporting her bowels with pelvic floor strengthening, toilet positioning with a squatty potty position to help with defecation, self abdominal massage, relaxed awareness of the pelvic floor and abdominal wall. She will continue to work on pelvic floor strengthening to help support the posterior wall of the pelvic floor and to give support to the rectum. Elli has a follow up visit with me in one month to progress pelvic floor strengthening in more upright positions. I will recheck the tone of her pelvic floor again at that time. Treatment will continue if needed for dynamic strengthening in upright positions. Thank you for this referral. Physical Therapy Plan Frequency and Duration Frequency of Treatment 1x/Week Duration of Treatment 8 Plan of Care Start Date 07/27/20 Plan of Care End Date 09/28/20 Therapeutic Interventions Therapeutic Interventions Home Exercise Program,Manual Therapy,Neuromuscular Re- education,Self-Care/Home Management,Therapeutic Exercises Modalities Biofeedback Next Visit Focus/Plan Next Note Type Treatment Note Next Visit Plan recheck tone and strength of the levator ani muscles, recheck for rectocele, begin work on upright positioning for strengthening the pelvic floor in dynamic positions
--- NOTE | 2020-08-31 15:56 | PT.OTN ---
Current Diagnoses Incomplete defecation (08/31/20) Physical Therapy Treatment Note PT-OP-A Visit Information Start: 06/22/20 13:01 Freq: Status: Active Protocol: Document 08/31/20 13:48 AMH (Rec: 08/31/20 13:54 AMH [id number]) Out-Patient Physical Therapy Visit Information Visit Information Visit Type Treatment Note Visit Start Time 15:15 Visit Stop Time 16:00 Total Visit Minutes 45 Visit Number 5 PT-OP-B Current Condition Start: 06/22/20 13:01 Freq: Status: Active Protocol: Document 06/22/20 13:02 AMH (Rec: 06/22/20 13:21 AMH [id number]) Current Condition History of Current Condition Onset Date 6 months ago. Current Complaints not fully emptying her bowels History of Current Condition pt complaints the urge for a bowel movement can be strong but then she loses momentum and she feels like is not fully emptying. It is not every time but it is new enough. She will have a colonoscopy and and did have a rectal exam. Dr. Zamora at [facility]. She has noticed some increase in intensity of urgency to void. Hx of tubal sterilization, leap procedure 1996. PT-OP-C Subjective Start: 06/22/20 13:01 Freq: Status: Active Protocol: Document 08/31/20 13:48 AMH (Rec: 08/31/20 13:54 AMH [id number]) OP-PT Subjective Patient Comments Patient Comments Things have been going good and feels like she can empty all the way all Patient Reported Progress Improving PT-OP-I Pelvic Floor Start: 06/22/20 13:01 Freq: Status: Active Protocol: Document 08/31/20 15:50 AMH (Rec: 08/31/20 15:55 AMH [email or web address]) Pelvic Floor Assessment Contraction Ability Manual Muscle Testing Left 4 Manual Muscle Testing Right 4 Manual Muscle Testing Anterior 4 Manual Muscle Testing Posterior 4 Muscle Endurance (Seconds) 10 Comments Pelvic Floor Comments Much improved strength of the pelvic floor and pt is able to fully relax to baseline PT-OP-J Posture/Palpation/Skin Start: 06/22/20 13:01 Freq: Status: Active Protocol: Document 06/22/20 13:00 AMH (Rec: 06/30/20 11:07 AMH [id number]) Palpation Assessment Location suprapubic fascia Palpation Location myofascial tightness over the suprapubic fascia over the bladder Palpation Findings Soft Tissue Tightness large intestine Palpation Location palpation over the large intestine via the abdominal wall Palpation Findings Soft Tissue Tightness Palpation Details soft tissue tightness in fascia over the transverse and descending colon. PT-OP-M Strength Start: 06/22/20 13:01 Freq: Status: Active Protocol: Document 06/22/20 13:00 AMH (Rec: 06/30/20 11:07 AMH [id number]) Trunk Strength Trunk Manual Muscle Testing Core Stabilization pelvic floor needs assessment, pt would like to wait until the next visit for this Comments decreased diaphragmatic excursion and tightness of the diaphragm PT-OP-Q Treatments Start: 06/22/20 13:01 Freq: Status: Active Protocol: Document 08/31/20 14:17 AMH (Rec: 08/31/20 14:35 AMH [id number]) Therapeutic Exercises Supine Exercises pelvic floor long holds Supine Exercise Name long holds x 10 second hold and 10 second relax Comments average work on EMG biofeedback us 23.2 uv now ( was 18.6) and max of 56.2 Standing Exercises standing pelvic floor 5 second hold time with 10 second relax Reps/Minutes x 10 reps PT-OP-T Assessment and Plan Start: 06/22/20 13:01 Freq: Status: Active Protocol: Document 08/31/20 15:50 AMH (Rec: 08/31/20 15:55 AMH [email or web address]) Physical Therapy Assessment Goals pt is lacking a home program for her pelvic floor Impairment Elli is lacking a program for her pelvic floor Group Home Goal (LTG) Elli is educated on both relaxed awareness of her pelvic floor and ability to sustain a contraction of her pelvic floor for 10 seconds to provide good support for the rectum. GOAL MET myofascial restrictions in the diaphragm and large intestine Impairment myofascial restrictions in the colon and large intestines Thickener Operator Goal (LTG) Improve mobility of the diaphragm and fascia over the large intestines. GOAL MET Inablility to fully empty the bowels Impairment inability to fully empty the bowels Thickener Operator Goal (LTG) Using self massage techniques, squatty potty, diaphragmatic breathing, pelvic floor relaxation Elli is able to fully empty her bowels. Excellent progress as Elli notes it is becoming easier to fully empty her bowels. GOAL MET Progress Towards Goals Progress Towards Goals Goals Met Assessment Summary Assessment Elli has met all established goals and is able to fully empty her bowels now. She demonstrates much better pelvic floor support. She is independent with a home program and will be discharged from PT Physical Therapy Plan Frequency and Duration Frequency of Treatment 1x/Week Duration of Treatment 8 Plan of Care Start Date 07/27/20 Plan of Care End Date 09/28/20 Therapeutic Interventions Therapeutic Interventions Home Exercise Program,Manual Therapy,Neuromuscular Re- education,Self-Care/Home Management,Therapeutic Exercises Modalities Biofeedback Discharge Physical Therapy Discharge Reasons Goals Met
== END 2020-10-01 11:53 ==
LOC: PHYS 13:45
PROVIDERS: Family Provider Nurse Practitioner Family; PCP Nurse Practitioner Family; Referring Provider Nurse Practitioner Family; Visit Provider Nurse Practitioner Family
DX: R15.0 Incomplete defecation (principal)
CPT/HCPCS: 97110; 97140; 97161; 97535

== ENCOUNTER → 2020-09-30 07:02 | Outpatient (CLI) | payer OTHER, MEDICAID, SELFPAY ==
[2020-09-30 08:00] LABS: Hematocrit 38.8 % (36-46); Hemoglobin 13.1 g/dL (12.0-16.0); Mean Corpuscular HGB Conc 33.7 % (30-36); Mean Corpuscular Hemoglobin 31.6 PG (26-34); Mean Corpuscular Volume 93.7 fL (80-100); Platelet Count 221 X10^3/uL (150-400); Red Blood Cell Count 4.14 X10^6/uL (4.0-5.2); Red Cell Distribution Width 12.4 % (11.6-14.8); White Blood Cell Count 3.9 X10^3/uL (4.5-11.0)
[2020-09-30 08:20] LABS: HEMOLYSIS < 15 (0-50); Iron 144 ug/dL (37-170)
[2020-09-30 08:24] LABS: Alanine Aminotransferase 29 IU/L (<35); Albumin 4.6 g/dL (3.5-5.0); Albumin Globulin Ratio 1.6 (1.0-2.8); Alkaline Phosphatase 39 U/L (38-126); Aspartate Aminotransferase 35 IU/L (14-36); BUN Creatinine Ratio 10.3 (6-22); Bilirubin Total 0.5 mg/dL (0.2-1.3); Blood Urea Nitrogen 6 mg/dL (7-17); Calcium 9.6 mg/dL (8.4-10.2); Carbon Dioxide 30 mmol/L (22-32); Chloride 100 mmol/L (98-107); Cholesterol 190 mg/dL (140-199); Estimated Glomerular Filt Rate > 60.0 mL/min (>60); Globulin 2.8 g/dL (1.7-4.1); Glucose 96 mg/dL (70-100); HDL Cholesterol 72 mg/dL (40-60); HEMOLYSIS < 15 (0-50); LDL Cholesterol Calculated 110 mg/dL (<100); Potassium 3.8 mmol/L (3.4-5.1); Sodium 138 mmol/L (137-145); Total Protein 7.4 g/dL (6.3-8.2); Triglycerides 41 mg/dL (35-150)
[2020-09-30 08:30] LABS: Percent Iron Saturation 40 % (15-50); Total Iron Binding Capacity 357 ug/dL (265-497); Transferrin 283 mg/dL (206-381)
[2020-09-30 08:57] LABS: Ferritin 27 ng/mL (11-264)
== END ==
PROVIDERS: Family Provider Nurse Practitioner Family; PCP Nurse Practitioner Family; Referring Provider Nurse Practitioner Family; Visit Provider Nurse Practitioner Family
DX: Z00.00 Encounter for general adult medical examination without abnormal findings (principal); E61.1 Iron deficiency; Z13.6 Encounter for screening for cardiovascular disorders
CPT/HCPCS: 36415; 80053; 80061; 82728; 83540; 83550; 85027

== ENCOUNTER → 2020-11-29 15:21 | Outpatient (CLI) | payer OTHER, MEDICAID, SELFPAY | PROVIDERS: Family Provider Nurse Practitioner Family; PCP Nurse Practitioner Family; Visit Provider Student in an Organized Health Care Education/Training Program | DX: R30.9 Painful micturition, unspecified (principal) | CPT/HCPCS: 87086 ==

== ENCOUNTER → 2021-04-12 07:05 | Outpatient (CLI) | payer OTHER, MEDICAID, SELFPAY ==
[2021-04-12 08:10] LABS: Alanine Aminotransferase 30 IU/L (<35); Albumin 4.3 g/dL (3.5-5.0); Albumin Globulin Ratio 1.7 (1.0-2.8); Alkaline Phosphatase 36 U/L (38-126); Aspartate Aminotransferase 41 IU/L (14-36); BUN Creatinine Ratio 14.9 (6-22); Bilirubin Total 0.7 mg/dL (0.2-1.3); Blood Urea Nitrogen 7 mg/dL (7-17); Calcium 9.1 mg/dL (8.4-10.2); Carbon Dioxide 34 mmol/L (22-32); Chloride 101 mmol/L (98-107); Cholesterol 163 mg/dL (140-199); Estimated Glomerular Filt Rate > 60.0 mL/min (>60); Globulin 2.5 g/dL (1.7-4.1); Glucose 93 mg/dL (70-100); HDL Cholesterol 62 mg/dL (40-60); HEMOLYSIS < 15 (0-50); LDL Cholesterol Calculated 90 mg/dL (<100); Potassium 4.3 mmol/L (3.4-5.1); Sodium 138 mmol/L (137-145); Total Protein 6.8 g/dL (6.3-8.2); Triglycerides 53 mg/dL (35-150)
[2021-04-12 08:23] LABS: Vitamin D 25 Hydroxy (D3) 47.8 ng/mL (30.0-100.0)
== END ==
PROVIDERS: Family Provider Nurse Practitioner Family; PCP Registered Nurse; Referring Provider Registered Nurse; Visit Provider Registered Nurse
DX: F32.9 Major depressive disorder, single episode, unspecified (principal); G43.909 Migraine, unspecified, not intractable, without status migrainosus; E78.5 Hyperlipidemia, unspecified; E55.9 Vitamin D deficiency, unspecified
CPT/HCPCS: 36415; 80053; 80061; 82306

== ENCOUNTER → 2021-04-27 11:20 | Outpatient (CLI) | payer OTHER, MEDICAID, SELFPAY ==
--- NOTE | 2021-04-27 11:26 | DI.RAD.S_ITS ---
PROCEDURE: XR FOOT LT MIN 3V INDICATIONS: L footpain, swelling bruising to 1 2nd toe/metatarsal TECHNIQUE: 3 views of the foot were acquired. COMPARISON: None. FINDINGS: Bones: There is a minimally displaced intra-articular fracture at the lateral base of the 1st distal phalanx. Mild degenerative changes are seen in the interphalangeal joints of the toes. No suspicious bony lesions. Soft tissues: Mild soft tissue edema is seen in the great toe. IMPRESSION: Minimally displaced intra-articular fracture at the lateral base of the 1st distal phalanx. Dictated by: Markie Pascual M.D. on 04/27/2021 at 11:57 Approved by: Markie Pascual M.D. on 04/27/2021 at 11:59
== END ==
PROVIDERS: Family Provider Nurse Practitioner Family; PCP Registered Nurse; Referring Provider Nurse Practitioner; Visit Provider Nurse Practitioner
DX: M79.672 Pain in left foot (principal); S92.422A Displaced fracture of distal phalanx of left great toe, initial encounter for closed fracture
CPT/HCPCS: 73630

== ENCOUNTER 2021-08-25 15:15 | Outpatient (RCR) | payer OTHER, MEDICAID, SELFPAY ==
--- NOTE | 2021-08-02 17:12 | PT.OIE ---
Current Diagnoses Pain in right shoulder (08/02/21) Abnormal posture (08/02/21) Past Medical History (Last Reviewed 07/25/21 @ 21:33 by EDILIA Marshall) Abnormal Pap smear of cervix (~1999) Allergic reaction to bee sting Allergic rhinitis (06/06/17) Allergies (~1999) Anxiety (~1989) Depression Eczema Frequent ventricular premature beats (09/30/14) H/O migraine Hemorrhoids (09/30/14) Hot flashes Human papilloma virus (~1999) Incomplete passage of stool Iron deficiency Irregular menstrual cycle (~2017) Migraines (~2017) Panic attack PVCs (premature ventricular contractions) (~2016) Right shoulder pain Screening for malignant neoplasm of colon Social phobia (09/30/14) Vitamin D deficiency Past Surgical History (Last Reviewed 07/25/21 @ 21:33 by EDILIA Marshall) Anesthesia History of breast augmentation (~1991) History of tonsillectomy (~1970) Status post breast biopsy (~2012) Status post laparoscopy (~1996) Status post loop electrosurgical excision procedure (LEEP) of cervix (~1996) Visit Care Team Role Provider Type EDILIA Marshall Attending Provider Advanced Webbing Supervisor Family Provider Primary Care Provider Referring Provider Specialty: Medical Address: [address] [place] [address], [facility] Email: [email or web address] Physical Therapy Initial Evaluation PT-OP-A Visit Information Start: 08/01/21 12:54 Freq: Status: Active Protocol: Document 08/02/21 16:00 AW (Rec: 08/02/21 09:18 AW [id number]) Out-Patient Physical Therapy Visit Information Visit Information Visit Type Initial Evaluation Visit Start Time 15:15 Visit Stop Time 16:00 Total Visit Minutes 45 Visit Number 1 Number of SYSTEMS CHECKOUT MECHANIC Visits 0 Evaluation Information Evaluation Date 08/02/21 PT-OP-B Current Condition Start: 08/01/21 12:54 Freq: Status: Active Protocol: Document 08/02/21 16:00 AW (Rec: 08/01/21 13:01 AW [id number]) Current Condition History of Current Condition Onset Date gradual; ~ 3 months Current Complaints right shoulder and neck pain History of Current Condition Elli began babysitting her 2 yo great niece in April and found herself picking up and holding the child frequently. She started to have shoulder and neck pain on the right side over the first month which has continued. She describes her pain as deep and achey. It starts in the right upper trap and extends up behind her ear and down to collar bone. The pain is affecting her driving, reading, texting. She finds relief with getting the arm into extension or stretching into flexion. Pain is fairly constant. Heat helps. Some stretches help. Pt notices her posture is getting sloppier recently. She has trouble carrying grocery bags. Taking shirts off has become difficult. She fears she may be overdoing it with her left shoulder and starting to fee achey there as well. Taking shirts off has been problematic. 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 Her shoulder pain is interfering with her ability to complete her job duties such as lifting, wiping, and cleaning. Of note, pt did fracture her left great toe distal phalanx around the same time she started to have shoulder pain but does not feel they are related. Pt has felt unable to participate in her regular yoga practice. She is right-hand dominant. Prior Treatments and Tests Pt has used heat and ice with some relief Future Testing and Treatments Planned None identified Treatment Goals Patient/Caregiver Goals Return to yoga, be able to lift and carry her 2 yo niece, be able to complete job duties with less pain. Personal Factors Other Personal Factors That May Effect (+) good awareness of posture Therapy/Recovery and breathing mechanics PT-OP-C Subjective Start: 08/01/21 12:54 Freq: Status: Active Protocol: Document 08/02/21 16:00 AW (Rec: 08/02/21 16:38 AW [id number]) OP-PT Subjective Patient Comments Patient Comments I understand now why some people elect surgery. I don't want surgery but the pain is a lot to deal with. Patient Questionnaires ABC- Activity Specific Balance Confidence Scale ABC Functional Impairment 20 to <40% Impaired (Score 61- 80) Quick Dash- Upper Extremity Quick Dash UE Score 52 Quick Dash UE Impairment 40 to 59% Impaired (Score 40- 59) OP-PT Pain Assessment Pain Assessment Grid Paper Pain Assessment Grid Completed Yes: scanned to EMR PT-OP-F Manual Assessment Start: 08/01/21 12:54 Freq: Status: Active Protocol: Document 08/02/21 16:00 AW (Rec: 08/02/21 16:38 AW [id number]) Manual Assessments Soft Tissue Assessment Soft Tissue Mobility Assessment Increased density in right scalenes, SCM, pec minor and upper trapezius compared with left. Joint Mobility Assessment Joint Mobility Assessment GH posterior and inferior glides WNL bilaterally. No point tenderness at A/C or S/C joints. PT-OP-J Posture/Palpation/Skin Start: 08/01/21 12:54 Freq: Status: Active Protocol: Document 08/02/21 16:00 AW (Rec: 08/02/21 16:38 AW [id number]) Posture Evaluation Position Sitting Head/C-Spine Posture Forward Head Shoulder Posture (L) Rounded,(R) Rounded Scapula Posture (L) Protracted,(R) Protracted PT-OP-K Range of Motion Start: 08/01/21 12:54 Freq: Status: Active Protocol: Document 08/02/21 16:00 AW (Rec: 08/02/21 16:38 AW [id number]) Cervical Spine Range of Motion Cervical Spine Active Testing Position Sitting Flexion 30 Extension 50 Rotation Left 53 Rotation Right 48 Lateral Flexion Left 30 Lateral Flexion Right 25 ROM Limitations Soft Tissue Tightness,Pain Shoulder Goniometric Range of Motion Shoulder Right Active Testing Position Sitting Flexion 170 Extension 36 Abduction 150 External Rotation at 0 degrees Abduction 50 Internal Rotation Behind Back (text) L3 Left Active Testing Position Sitting Flexion 170 Extension 45 Abduction 170 External Rotation at 0 degrees Abduction 75 Internal Rotation Behind Back (text) T5 Elbow/Forearm Range of Motion Elbow/Forearm bilat Elbow/Forearm ROM WFL Yes PT-OP-L Special Tests Start: 08/01/21 12:54 Freq: Status: Active Protocol: Document 08/02/21 16:00 AW (Rec: 08/02/21 16:52 AW [id number]) Special Tests Cervical Spine Special Tests Spurling's Test Test Results negative bilaterally Shoulder Special Tests Painful Arc Test Results positive at 120 degrees on the right AC Joint Compression Test Results negative bilaterally Bridges Edgar Impingement Test Results positive right; negative left Drop Arm Rotator Cuff Test Results negative PT-OP-M Strength Start: 08/01/21 12:54 Freq: Status: Active Protocol: Document 08/02/21 16:00 AW (Rec: 08/02/21 16:52 AW [id number]) Shoulder Strength Shoulder Manual Muscle Testing bilat Flexion 5 Normal Extension 5 Normal Abduction (C5) 5 Normal External Rotation 4+ Good+ Internal Rotation 5 Normal Comments Strength is good and symmetrical but resisted flexion, abduction, and external rotation reproduce pain symptoms on the right side. Elbow/Forearm Strength Elbow and Forearm Manual Muscle Testing bilat Flexion (C6) 5 Normal Extension (C7) 5 Normal Comments Resisted elbow flexion on the right reproduces anterior shoulder pain PT-OP-Q Treatments Start: 08/01/21 12:54 Freq: Status: Active Protocol: Document 08/02/21 16:00 AW (Rec: 08/02/21 16:52 AW [id number]) Therapeutic Exercises Supine Exercises pec stretch Supine Exercise Name pec stretch Equipment Used towel roll vertically Reps/Minutes 30 SH x 5 Comments cued pain free range; HEP Sitting Exercises scapular retraction Sitting Exercise Name scapular retraction Side bilateral Resistance AROM Comments HEP Manual Therapy Treatment Soft Tissue Mobilization UT, SCM, scalenes, suboccipitals Body Location UT, SCM, scalenes, suboccipitals Mobilization Type Cross-Friction,Rolling, Strumming,Sustained Pressure, Trigger Point Release Intensity/Depth Moderate Body Position Hooklying Joint Mobilizations 1st rib Joint 1st rib (R) Direction inferior Grade III Body Position Hooklying Comments to address palpable elevation on the right compared with left Self-Care/Home Management Treatment Education Patient Education Home Exercise Program,Posture PT-OP-T Assessment and Plan Start: 08/01/21 12:54 Freq: Status: Active Protocol: Document 08/02/21 16:00 AW (Rec: 08/02/21 17:11 AW [id number]) Physical Therapy Assessment Rehab Potential Rehabilitation Potential Good Evaluation Complexity Number of Personal Factors/Comorbidities 1-2 Number of Body Systems Impaired 1-2 Clinical Presentation at Evaluation Stable Impairments Impairments Functional Activities,Pain, Posture,ROM,Soft Tissue Mobility,Strength Goals Four Impairment lifting Coin Machine Collector Goal (LTG) Pt will be able to lift and hold her 2 yo niece with no increase in baseline pain LTG Duration 10 weeks - 10/11/21 Three Impairment ROM Short Term Goal (STG) Pt will improve right shoulder flexion and abduction to match left shoulder without increase in baseline pain STG Duration 4 weeks -08/30/21 [facility] Goal (LTG) Pt will improve right shoulder internal rotation from L3 to T12 or higher without increase in baseline pain to improve function in daily activities. LTG Duration 10 weeks - 10/11/21 Two Impairment pain with daily activities and job performance Short Term Goal (STG) Pt able to dress and undress upper body without increase in baseline pain. 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 On assessment, pt has reduced ROM and pain with resisted right shoulder flexion, abduction, and external rotation. She has increased density in right upper trapezius, SCM, scalenes and elevated right 1st rib compared with left side. Habitual postures are likely predisposing and perpetuating for her pain. Pt is expected to benefit from skilled PT to address these impairments for return to yoga, job, and child welfare worker activities without pain. Physical Therapy Plan Frequency and Duration Frequency of Treatment 1-2x/week Duration of Treatment 10 weeks Plan of Care Start Date 08/02/21 Plan of Care End Date 10/11/21 Therapeutic Interventions Therapeutic Interventions Home Exercise Program,Joint Mobilizations,Manual Therapy, Neuromuscular Re-education, Self-Care/Home Management,Soft Tissue Mobilization,Taping, Therapeutic Activities, Therapeutic Exercises Modalities Cold Pack/Ice Massage,Electric Stimulation,Hot Packs Next Visit Focus/Plan Next Note Type Treatment Note Next Visit Plan review and assess initial HEP; STM for right UT, SCM, scalene tone and first rib elevation; consider pulleys warm up, t/s mobility, supine lower trap recruitment, SL ER
--- NOTE | 2021-08-02 17:12 | PT.OPPOC ---
Physical, Occupational & Speech Therapy At [facility] Current Diagnoses Pain in right shoulder (08/02/21) Abnormal posture (08/02/21) Visit Care Team Role Provider Type EDILIA Marshall Attending Provider Advanced Production Floater Family Provider Primary Care Provider Referring Provider Specialty: Medical Address: [address] [place] [address], [facility] Email: [email or web address] Plan Of Care PT-OP-T Assessment and Plan Start: 08/01/21 12:54 Freq: Status: Active Protocol: Document 08/02/21 16:00 AW (Rec: 08/02/21 17:11 AW [id number]) Physical Therapy Assessment Rehab Potential Rehabilitation Potential Good Evaluation Complexity Number of Personal Factors/Comorbidities 1-2 Number of Body Systems Impaired 1-2 Clinical Presentation at Evaluation Stable Impairments Impairments Functional Activities,Pain, Posture,ROM,Soft Tissue Mobility,Strength Goals Four Impairment lifting Alpine Patroller Goal (LTG) Pt will be able to lift and hold her 2 yo niece with no increase in baseline pain LTG Duration 10 weeks - 10/11/21 Three Impairment ROM Short Term Goal (STG) Pt will improve right shoulder flexion and abduction to match left shoulder without increase in baseline pain STG Duration 4 weeks -08/30/21 Alpine Patroller Goal (LTG) Pt will improve right shoulder internal rotation from L3 to T12 or higher without increase in baseline pain to improve function in daily activities. LTG Duration 10 weeks - 10/11/21 Two Impairment pain with daily activities and job performance Short Term Goal (STG) Pt able to dress and undress upper body without increase in baseline pain. 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 On assessment, pt has reduced ROM and pain with resisted right shoulder flexion, abduction, and external rotation. She has increased density in right upper trapezius, SCM, scalenes and elevated right 1st rib compared with left side. Habitual postures are likely predisposing and perpetuating for her pain. Pt is expected to benefit from skilled PT to address these impairments for return to yoga, job, and children's program coordinator activities without pain. Physical Therapy Plan Frequency and Duration Frequency of Treatment 1-2x/week Duration of Treatment 10 weeks Plan of Care Start Date 08/02/21 Plan of Care End Date 10/11/21 Therapeutic Interventions Therapeutic Interventions Home Exercise Program,Joint Mobilizations,Manual Therapy, Neuromuscular Re-education, Self-Care/Home Management,Soft Tissue Mobilization,Taping, Therapeutic Activities, Therapeutic Exercises Modalities Cold Pack/Ice Massage,Electric Stimulation,Hot Packs Next Visit Focus/Plan Next Note Type Treatment Note Next Visit Plan review and assess initial HEP; STM for right UT, SCM, scalene tone and first rib elevation; consider pulleys warm up, t/s mobility, supine lower trap recruitment, SL ER Plan of Care Dates Plan of Care Start Date 08/02/21 Plan of Care End Date 10/11/21 Electronically Signed by: Christina Wise PT 08/02/21 [id number] Please Sign and Return: I have reviewed this Plan of Care and certify that the skilled therapy services above are required to meet the patient?s needs. Physician Signature Date Printed Name and Credentials Clinical Instructor Signature Printed Name and Credentials
--- NOTE | 2021-08-04 12:11 | PT.OTN ---
Current Diagnoses Pain in right shoulder (08/04/21) Abnormal posture (08/04/21) Physical Therapy Treatment Note PT-OP-A Visit Information Start: 08/01/21 12:54 Freq: Status: Active Protocol: Document 08/04/21 09:45 AW (Rec: 08/04/21 09:46 AW [id number]) Out-Patient Physical Therapy Visit Information Visit Information Visit Type Treatment Note Visit Start Time 09:00 Visit Stop Time 09:45 Total Visit Minutes 45 Visit Number 2/9 Number of DAIRY MANAGER Visits 0 PT-OP-B Current Condition Start: 08/01/21 12:54 Freq: Status: Active Protocol: Document 08/02/21 16:00 AW (Rec: 08/01/21 13:01 AW [id number]) Current Condition History of Current Condition Onset Date gradual; ~ 3 months Current Complaints right shoulder and neck pain History of Current Condition Elli began babysitting her 2 yo great niece in April and found herself picking up and holding the child frequently. She started to have shoulder and neck pain on the right side over the first month which has continued. She describes her pain as deep and achey. It starts in the right upper trap and extends up behind her ear and down to collar bone. The pain is affecting her driving, reading, texting. She finds relief with getting the arm into extension or stretching into flexion. Pain is fairly constant. Heat helps. Some stretches help. Pt notices her posture is getting sloppier recently. She has trouble carrying grocery bags. Taking shirts off has become difficult. She fears she may be overdoing it with her left shoulder and starting to fee achey there as well. Taking shirts off has been problematic. 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 Her shoulder pain is interfering with her ability to complete her job duties such as lifting, wiping, and cleaning. Of note, pt did fracture her left great toe distal phalanx around the same time she started to have shoulder pain but does not feel they are related. Pt has felt unable to participate in her regular yoga practice. She is right-hand dominant. Prior Treatments and Tests Pt has used heat and ice with some relief Future Testing and Treatments Planned None identified Treatment Goals Patient/Caregiver Goals Return to yoga, be able to lift and carry her 2 yo niece, be able to complete job duties with less pain. Personal Factors Other Personal Factors That May Effect (+) good awareness of posture Therapy/Recovery and breathing mechanics PT-OP-C Subjective Start: 08/01/21 12:54 Freq: Status: Active Protocol: Document 08/04/21 09:45 AW (Rec: 08/04/21 09:46 AW [id number]) OP-PT Subjective Patient Comments Patient Comments 5/10 pain as pt arrives today in anterior shoulder/scalenes. Did a lot of overhead dusting this morning and does not feel it stressed her shoulder any more than usual. PT-OP-F Manual Assessment Start: 08/01/21 12:54 Freq: Status: Active Protocol: Document 08/02/21 16:00 AW (Rec: 08/02/21 16:38 AW [id number]) Manual Assessments Soft Tissue Assessment Soft Tissue Mobility Assessment Increased density in right scalenes, SCM, pec minor and upper trapezius compared with left. Joint Mobility Assessment Joint Mobility Assessment GH posterior and inferior glides WNL bilaterally. No point tenderness at A/C or S/C joints. PT-OP-J Posture/Palpation/Skin Start: 08/01/21 12:54 Freq: Status: Active Protocol: Document 08/02/21 16:00 AW (Rec: 08/02/21 16:38 AW [id number]) Posture Evaluation Position Sitting Head/C-Spine Posture Forward Head Shoulder Posture (L) Rounded,(R) Rounded Scapula Posture (L) Protracted,(R) Protracted PT-OP-K Range of Motion Start: 08/01/21 12:54 Freq: Status: Active Protocol: Document 08/02/21 16:00 AW (Rec: 08/02/21 16:38 AW [id number]) Cervical Spine Range of Motion Cervical Spine Active Testing Position Sitting Flexion 30 Extension 50 Rotation Left 53 Rotation Right 48 Lateral Flexion Left 30 Lateral Flexion Right 25 ROM Limitations Soft Tissue Tightness,Pain Shoulder Goniometric Range of Motion Shoulder Right Active Testing Position Sitting Flexion 170 Extension 36 Abduction 150 External Rotation at 0 degrees Abduction 50 Internal Rotation Behind Back (text) L3 Left Active Testing Position Sitting Flexion 170 Extension 45 Abduction 170 External Rotation at 0 degrees Abduction 75 Internal Rotation Behind Back (text) T5 Elbow/Forearm Range of Motion Elbow/Forearm bilat Elbow/Forearm ROM WFL Yes PT-OP-L Special Tests Start: 08/01/21 12:54 Freq: Status: Active Protocol: Document 08/02/21 16:00 AW (Rec: 08/02/21 16:52 AW [id number]) Special Tests Cervical Spine Special Tests Spurling's Test Test Results negative bilaterally Shoulder Special Tests Painful Arc Test Results positive at 120 degrees on the right AC Joint Compression Test Results negative bilaterally Birdges Edgar Impingement Test Results positive right; negative left Drop Arm Rotator Cuff Test Results negative PT-OP-M Strength Start: 08/01/21 12:54 Freq: Status: Active Protocol: Document 08/02/21 16:00 AW (Rec: 08/02/21 16:52 AW [id number]) Shoulder Strength Shoulder Manual Muscle Testing bilat Flexion 5 Normal Extension 5 Normal Abduction (C5) 5 Normal External Rotation 4+ Good+ Internal Rotation 5 Normal Comments Strength is good and symmetrical but resisted flexion, abduction, and external rotation reproduce pain symptoms on the right side. Elbow/Forearm Strength Elbow and Forearm Manual Muscle Testing bilat Flexion (C6) 5 Normal Extension (C7) 5 Normal Comments Resisted elbow flexion on the right reproduces anterior shoulder pain PT-OP-Q Treatments Start: 08/01/21 12:54 Freq: Status: Active Protocol: Document 08/04/21 09:45 AW (Rec: 08/04/21 09:46 AW [id number]) Cardio Equipment Upper Body Ergometer (UBE) Duration (Minutes) 4 RPM 70 Seat Position 7 Height 2 Therapeutic Exercises Sitting Exercises lev scap stretch Sitting Exercise Name lev scap stretch Side right Reps/Minutes 30SH x 4 Comments HEP scalene stretch Sitting Exercise Name scalene stretch Side right Equipment Used towel Reps/Minutes 30 SH x 4 Comments HEP pulleys Sitting Exercise Name pulleys - flexion, scaption Side bilateral Comments cued deep breath at end range scapular retraction Sitting Exercise Name scapular retraction Side bilateral Resistance AROM Comments HEP Manual Therapy Treatment Soft Tissue Mobilization UT, SCM, scalenes, suboccipitals Body Location UT, SCM, scalenes, suboccipitals Mobilization Type Cross-Friction,Rolling, Strumming,Sustained Pressure, Trigger Point Release Intensity/Depth Moderate Body Position Hooklying Joint Mobilizations 1st rib Joint 1st rib (R) Direction inferior Grade III Body Position Hooklying Comments to address palpable elevation on the right compared with left Self-Care/Home Management Treatment Education Patient Education Home Exercise Program,Posture Activities Self-Care/Home Management Activities Added stretches and supine LT recruitment to HEP PT-OP-T Assessment and Plan Start: 08/01/21 12:54 Freq: Status: Active Protocol: Document 08/04/21 09:45 AW (Rec: 08/04/21 09:46 AW [id number]) Physical Therapy Assessment Rehab Potential Rehabilitation Potential Good Evaluation Complexity Number of Personal Factors/Comorbidities 1-2 Number of Body Systems Impaired 1-2 Clinical Presentation at Evaluation Stable Impairments Impairments Functional Activities,Pain, Posture,ROM,Soft Tissue Mobility,Strength Goals Four Impairment lifting Security Advisor Goal (LTG) Pt will be able to lift and hold her 2 yo niece with no increase in baseline pain LTG Duration 10 weeks - 10/11/21 Three Impairment ROM Short Term Goal (STG) Pt will improve right shoulder flexion and abduction to match left shoulder without increase in baseline pain STG Duration 4 weeks -08/30/21 Retirement Goal (LTG) Pt will improve right shoulder internal rotation from L3 to T12 or higher without increase in baseline pain to improve function in daily activities. LTG Duration 10 weeks - 10/11/21 Two Impairment pain with daily activities and job performance Short Term Goal (STG) Pt able to dress and undress upper body without increase in baseline pain. STG Duration 4 weeks -08/30/21 Security Advisor Goal (LTG) Pt able to wipe tables at work 3 days in a row with no increase in baseline pain LTG Duration 10 weeks - 10/11/21 One Impairment lacks HEP Short Term Goal (STG) Pt will be independent with HEP for shoulder ROM, strength , and pain management to support therapy services provided in clinic STG Duration 4 weeks -08/30/21 Assessment Summary Assessment Treatment focused on STM for UT, SCM, and scalenes on the right side and neck stretches for HEP. Pt tolerated well and reported reduced pain end of session. Physical Therapy Plan Frequency and Duration Frequency of Treatment 1-2x/week Duration of Treatment 10 weeks Plan of Care Start Date 08/02/21 Plan of Care End Date 10/11/21 Therapeutic Interventions Therapeutic Interventions Home Exercise Program,Joint Mobilizations,Manual Therapy, Neuromuscular Re-education, Self-Care/Home Management,Soft Tissue Mobilization,Taping, Therapeutic Activities, Therapeutic Exercises Modalities Cold Pack/Ice Massage,Electric Stimulation,Hot Packs Next Visit Focus/Plan Next Note Type Treatment Note Next Visit Plan review and assess HEP; STM for right UT, SCM, scalene tone and first rib elevation; consider AAROM R shoulder, t/s mobility, SL ER
--- NOTE | 2021-08-09 17:13 | PT.OTN ---
Current Diagnoses Pain in right shoulder (08/09/21) Abnormal posture (08/09/21) Physical Therapy Treatment Note PT-OP-A Visit Information Start: 08/01/21 12:54 Freq: Status: Active Protocol: Document 08/09/21 15:17 AW (Rec: 08/09/21 16:02 AW [id number]) Out-Patient Physical Therapy Visit Information Visit Information Visit Type Treatment Note Visit Start Time 15:15 Visit Stop Time 16:00 Total Visit Minutes 45 Visit Number 3/9 Number of GUN STOCK CHECKER Visits 0 Evaluation Information Evaluation Date 08/02/21 PT-OP-B Current Condition Start: 08/01/21 12:54 Freq: Status: Active Protocol: Document 08/02/21 16:00 AW (Rec: 08/01/21 13:01 AW [id number]) Current Condition History of Current Condition Onset Date gradual; ~ 3 months Current Complaints right shoulder and neck pain History of Current Condition Elli began babysitting her 2 yo great niece in April and found herself picking up and holding the child frequently. She started to have shoulder and neck pain on the right side over the first month which has continued. She describes her pain as deep and achey. It starts in the right upper trap and extends up behind her ear and down to collar bone. The pain is affecting her driving, reading, texting. She finds relief with getting the arm into extension or stretching into flexion. Pain is fairly constant. Heat helps. Some stretches help. Pt notices her posture is getting sloppier recently. She has trouble carrying grocery bags. Taking shirts off has become difficult. She fears she may be overdoing it with her left shoulder and starting to fee achey there as well. Taking shirts off has been problematic. 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 Her shoulder pain is interfering with her ability to complete her job duties such as lifting, wiping, and cleaning. Of note, pt did fracture her left great toe distal phalanx around the same time she started to have shoulder pain but does not feel they are related. Pt has felt unable to participate in her regular yoga practice. She is right-hand dominant. Prior Treatments and Tests Pt has used heat and ice with some relief Future Testing and Treatments Planned None identified Treatment Goals Patient/Caregiver Goals Return to yoga, be able to lift and carry her 2 yo niece, be able to complete job duties with less pain. Personal Factors Other Personal Factors That May Effect (+) good awareness of posture Therapy/Recovery and breathing mechanics PT-OP-C Subjective Start: 08/01/21 12:54 Freq: Status: Active Protocol: Document 08/09/21 15:17 AW (Rec: 08/09/21 16:02 AW [id number]) OP-PT Subjective Patient Comments Patient Comments Pt is enjoying stretches and feels good targeted stretch. 3 /10 pain at arrival. PT-OP-F Manual Assessment Start: 08/01/21 12:54 Freq: Status: Active Protocol: Document 08/02/21 16:00 AW (Rec: 08/02/21 16:38 AW [id number]) Manual Assessments Soft Tissue Assessment Soft Tissue Mobility Assessment Increased density in right scalenes, SCM, pec minor and upper trapezius compared with left. Joint Mobility Assessment Joint Mobility Assessment GH posterior and inferior glides WNL bilaterally. No point tenderness at A/C or S/C joints. PT-OP-J Posture/Palpation/Skin Start: 08/01/21 12:54 Freq: Status: Active Protocol: Document 08/02/21 16:00 AW (Rec: 08/02/21 16:38 AW [id number]) Posture Evaluation Position Sitting Head/C-Spine Posture Forward Head Shoulder Posture (L) Rounded,(R) Rounded Scapula Posture (L) Protracted,(R) Protracted PT-OP-K Range of Motion Start: 08/01/21 12:54 Freq: Status: Active Protocol: Document 08/02/21 16:00 AW (Rec: 08/02/21 16:38 AW [id number]) Cervical Spine Range of Motion Cervical Spine Active Testing Position Sitting Flexion 30 Extension 50 Rotation Left 53 Rotation Right 48 Lateral Flexion Left 30 Lateral Flexion Right 25 ROM Limitations Soft Tissue Tightness,Pain Shoulder Goniometric Range of Motion Shoulder Right Active Testing Position Sitting Flexion 170 Extension 36 Abduction 150 External Rotation at 0 degrees Abduction 50 Internal Rotation Behind Back (text) L3 Left Active Testing Position Sitting Flexion 170 Extension 45 Abduction 170 External Rotation at 0 degrees Abduction 75 Internal Rotation Behind Back (text) T5 Elbow/Forearm Range of Motion Elbow/Forearm bilat Elbow/Forearm ROM WFL Yes PT-OP-L Special Tests Start: 01/24/22 12:54 Freq: Status: Active Protocol: Document 08/02/21 16:00 AW (Rec: 08/02/21 16:52 AW [id number]) Special Tests Cervical Spine Special Tests Spurling's Test Test Results negative bilaterally Shoulder Special Tests Painful Arc Test Results positive at 120 degrees on the right AC Joint Compression Test Results negative bilaterally Bridges Edgar Impingement Test Results positive right; negative left Drop Arm Rotator Cuff Test Results negative PT-OP-M Strength Start: 08/01/21 12:54 Freq: Status: Active Protocol: Document 08/02/21 16:00 AW (Rec: 08/02/21 16:52 AW [id number]) Shoulder Strength Shoulder Manual Muscle Testing bilat Flexion 5 Normal Extension 5 Normal Abduction (C5) 5 Normal External Rotation 4+ Good+ Internal Rotation 5 Normal Comments Strength is good and symmetrical but resisted flexion, abduction, and external rotation reproduce pain symptoms on the right side. Elbow/Forearm Strength Elbow and Forearm Manual Muscle Testing bilat Flexion (C6) 5 Normal Extension (C7) 5 Normal Comments Resisted elbow flexion on the right reproduces anterior shoulder pain PT-OP-Q Treatments Start: 08/01/21 12:54 Freq: Status: Active Protocol: Document 08/09/21 15:17 AW (Rec: 08/09/21 16:02 AW [id number]) Cardio Equipment Upper Body Ergometer (UBE) Duration (Minutes) 4 RPM 70 Seat Position 7 Height 2 Therapeutic Exercises Supine Exercises cervical retraction Supine Exercise Name cervical retraction Reps/Minutes 3SH x 10 Comments HEP pec stretch Supine Exercise Name pec stretch Equipment Used 1/2 foam roll Reps/Minutes 60 sec x 2 Comments added back stroke; cued pain free range Prone Exercises press up Prone Exercise Name press up Comments hands at shoulder height; HEP Sidelying Exercises open book thoracic rotation Sidelying Exercise Name open book thoracic rotation Side bilateral Standing Exercises rows Standing Exercise Name GH row Side bilateral Resistance TB1 Reps/Minutes 2x15 Comments cued scapular control eccentric phase; HEP Manual Therapy Treatment Soft Tissue Mobilization UT, SCM, scalenes, suboccipitals Body Location UT, SCM, scalenes, suboccipitals Mobilization Type Cross-Friction,Rolling, Strumming,Sustained Pressure, Trigger Point Release Intensity/Depth Moderate Body Position Hooklying Self-Care/Home Management Treatment Education Patient Education Home Exercise Program,Posture Activities Self-Care/Home Management Activities Added thoracic mobility, neck strength, and rows for HEP with instruction to do strength work every other day at most. PT-OP-T Assessment and Plan Start: 08/01/21 12:54 Freq: Status: Active Protocol: Document 08/09/21 15:17 AW (Rec: 08/09/21 16:02 AW [id number]) Physical Therapy Assessment Goals Four Impairment lifting Senior Care Goal (LTG) Pt will be able to lift and hold her 2 yo niece with no increase in baseline pain LTG Duration 10 weeks - 10/11/21 Three Impairment ROM Short Term Goal (STG) Pt will improve right shoulder flexion and abduction to match left shoulder without increase in baseline pain STG Duration 4 weeks -08/30/21 Dynamics Ax Solution Architect Goal (LTG) Pt will improve right shoulder internal rotation from L3 to T12 or higher without increase in baseline pain to improve function in daily activities. LTG Duration 10 weeks - 10/11/21 Two Impairment pain with daily activities and job performance Short Term Goal (STG) Pt able to dress and undress upper body without increase in baseline pain. STG Duration 4 weeks -08/30/21 Senior Care Goal (LTG) Pt able to wipe tables at work 3 days in a row with no increase in baseline pain LTG Duration 10 weeks - 10/11/21 One Impairment lacks HEP Short Term Goal (STG) Pt will be independent with HEP for shoulder ROM, strength , and pain management to support therapy services provided in clinic STG Duration 4 weeks -08/30/21 Assessment Summary Assessment At pt request, initiated UE weightbearing today with prone press ups. Pt needed cues for cervical stability during press up. Wall push up was too irritating so discontinued. Added open book for thoracic mobility and pt responded well . Physical Therapy Plan Frequency and Duration Frequency of Treatment 1-2x/week Duration of Treatment 10 weeks Plan of Care Start Date 08/02/21 Plan of Care End Date 10/11/21 Therapeutic Interventions Therapeutic Interventions Home Exercise Program,Joint Mobilizations,Manual Therapy, Neuromuscular Re-education, Self-Care/Home Management,Soft Tissue Mobilization,Taping, Therapeutic Activities, Therapeutic Exercises Modalities Cold Pack/Ice Massage,Electric Stimulation,Hot Packs Next Visit Focus/Plan Next Note Type Treatment Note Next Visit Plan review HEP especially thoracic mobility; consider quadruped activities in preparation for return to yoga
--- NOTE | 2021-08-11 08:15 | PT.OTN ---
Current Diagnoses Pain in right shoulder (08/11/21) Abnormal posture (08/11/21) Physical Therapy Treatment Note PT-OP-A Visit Information Start: 08/01/21 12:54 Freq: Status: Active Protocol: Document 08/11/21 07:31 SP (Rec: 08/11/21 08:18 SP [id number]) Out-Patient Physical Therapy Visit Information Visit Information Visit Type Treatment Note Visit Start Time 07:31 Visit Stop Time 08:15 Total Visit Minutes 44 Visit Number 4/9 Number of [employer]IV[employer]ER Visits 1 Evaluation Information Evaluation Date 08/02/21 PT-OP-B Current Condition Start: 08/01/21 12:54 Freq: Status: Active Protocol: Document 08/02/21 16:00 AW (Rec: 08/01/21 13:01 AW [id number]) Current Condition History of Current Condition Onset Date gradual; ~ 3 months Current Complaints right shoulder and neck pain History of Current Condition Elli began babysitting her 2 yo great niece in April and found herself picking up and holding the child frequently. She started to have shoulder and neck pain on the right side over the first month which has continued. She describes her pain as deep and achey. It starts in the right upper trap and extends up behind her ear and down to collar bone. The pain is affecting her driving, reading, texting. She finds relief with getting the arm into extension or stretching into flexion. Pain is fairly constant. Heat helps. Some stretches help. Pt notices her posture is getting sloppier recently. She has trouble carrying grocery bags. Taking shirts off has become difficult. She fears she may be overdoing it with her left shoulder and starting to fee achey there as well. Taking shirts off has been problematic. 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 Her shoulder pain is interfering with her ability to complete her job duties such as lifting, wiping, and cleaning. Of note, pt did fracture her left great toe distal phalanx around the same time she started to have shoulder pain but does not feel they are related. Pt has felt unable to participate in her regular yoga practice. She is right-hand dominant. Prior Treatments and Tests Pt has used heat and ice with some relief Future Testing and Treatments Planned None identified Treatment Goals Patient/Caregiver Goals Return to yoga, be able to lift and carry her 2 yo niece, be able to complete job duties with less pain. Personal Factors Other Personal Factors That May Effect (+) good awareness of posture Therapy/Recovery and breathing mechanics PT-OP-C Subjective Start: 08/01/21 12:54 Freq: Status: Active Protocol: Document 08/11/21 07:31 SP (Rec: 08/11/21 08:18 SP [id number]) OP-PT Subjective Patient Comments Patient Comments Pt stated R lateral neck down into shoulder sore today, hard time getting to sleep and at worse time pain up to 7/10, not sure why. Compliant with HEP with no reports with issues doing them. Pt reports does use tennis ball in sock laying on floor does help decrease muscle tightness but can't do on neck. PT-OP-F Manual Assessment Start: 08/01/21 12:54 Freq: Status: Active Protocol: Document 08/02/21 16:00 AW (Rec: 08/02/21 16:38 AW [id number]) Manual Assessments Soft Tissue Assessment Soft Tissue Mobility Assessment Increased density in right scalenes, SCM, pec minor and upper trapezius compared with left. Joint Mobility Assessment Joint Mobility Assessment GH posterior and inferior glides WNL bilaterally. No point tenderness at A/C or S/C joints. PT-OP-J Posture/Palpation/Skin Start: 08/01/21 12:54 Freq: Status: Active Protocol: Document 08/02/21 16:00 AW (Rec: 08/02/21 16:38 AW [id number]) Posture Evaluation Position Sitting Head/C-Spine Posture Forward Head Shoulder Posture (L) Rounded,(R) Rounded Scapula Posture (L) Protracted,(R) Protracted PT-OP-K Range of Motion Start: 08/01/21 12:54 Freq: Status: Active Protocol: Document 08/02/21 16:00 AW (Rec: 08/02/21 16:38 AW [id number]) Cervical Spine Range of Motion Cervical Spine Active Testing Position Sitting Flexion 30 Extension 50 Rotation Left 53 Rotation Right 48 Lateral Flexion Left 30 Lateral Flexion Right 25 ROM Limitations Soft Tissue Tightness,Pain Shoulder Goniometric Range of Motion Shoulder Right Active Testing Position Sitting Flexion 170 Extension 36 Abduction 150 External Rotation at 0 degrees Abduction 50 Internal Rotation Behind Back (text) L3 Left Active Testing Position Sitting Flexion 170 Extension 45 Abduction 170 External Rotation at 0 degrees Abduction 75 Internal Rotation Behind Back (text) T5 Elbow/Forearm Range of Motion Elbow/Forearm bilat Elbow/Forearm ROM WFL Yes PT-OP-L Special Tests Start: 08/01/21 12:54 Freq: Status: Active Protocol: Document 08/02/21 16:00 AW (Rec: 08/02/21 16:52 AW [id number]) Special Tests Cervical Spine Special Tests Spurling's Test Test Results negative bilaterally Shoulder Special Tests Painful Arc Test Results positive at 120 degrees on the right AC Joint Compression Test Results negative bilaterally Bridges Edgar Impingement Test Results positive right; negative left Drop Arm Rotator Cuff Test Results negative PT-OP-M Strength Start: 08/01/21 12:54 Freq: Status: Active Protocol: Document 08/02/21 16:00 AW (Rec: 08/02/21 16:52 AW [id number]) Shoulder Strength Shoulder Manual Muscle Testing bilat Flexion 5 Normal Extension 5 Normal Abduction (C5) 5 Normal External Rotation 4+ Good+ Internal Rotation 5 Normal Comments Strength is good and symmetrical but resisted flexion, abduction, and external rotation reproduce pain symptoms on the right side. Elbow/Forearm Strength Elbow and Forearm Manual Muscle Testing bilat Flexion (C6) 5 Normal Extension (C7) 5 Normal Comments Resisted elbow flexion on the right reproduces anterior shoulder pain PT-OP-Q Treatments Start: 08/01/21 12:54 Freq: Status: Active Protocol: Document 08/11/21 07:31 SP (Rec: 08/11/21 08:18 SP [id number]) Therapeutic Exercises Supine Exercises Ts, 1/2 X Supine Exercise Name added to HEP Side bilateral Equipment Used noodle (pipe insulation has at home) Reps/Minutes x5 Comments good feedback response, cued slow pace pec stretch Supine Exercise Name pec stretch Equipment Used noodle (pipe insulation has at home) Reps/Minutes 60 sec x 2 various ranges Comments cued pain free range Sidelying Exercises open book thoracic rotation Sidelying Exercise Name open book thoracic rotation Side bilateral Reps/Minutes 8 reps Comments improved response hand on head w/ elbow bent Sitting Exercises lev scap stretch Sitting Exercise Name lev scap stretch Side right Reps/Minutes 30SH x 4 Comments HEP scalene stretch Sitting Exercise Name scalene stretch Side right Equipment Used towel Reps/Minutes 30 SH x 4 Comments HEP Standing Exercises self STMs Standing Exercise Name thercane : UT, inter scap, suboccipitals Side right Equipment Used thercane. Reps/Minutes 3 min Comments sustained pressure with MWM head turns/ nods or scap mob decreased tightnes Manual Therapy Treatment Soft Tissue Mobilization Pec, interscap, infraspinatus Mobilization Type Rolling,Strumming,Sustained Pressure,Other Intensity/Depth Moderate Body Position Sidelying Comments manual, instruction on self UT, SCM, scalenes, suboccipitals Body Location UT, SCM, scalenes, suboccipitals Mobilization Type Cross-Friction,Rolling, Strumming,Sustained Pressure, Trigger Point Release Intensity/Depth Moderate Body Position Hooklying Comments manual and MWM, instructed use theracane for self application-good response Self-Care/Home Management Treatment Education Patient Education Body Mechanics,Home Exercise Program,Joint Protection, Posture Other Education Education on sleeping with pillow support: supine towel roll under neck and proper height pillow w/ pillows under thighs/ calves, sidesleeping: pillows under head, betwn BLE , folded towel under ribcage, pillows between BUE. Good feedback comfort. Initiated supine noodle: pec stretch, Ts, 1/2 X, cued slow pain free range with no adverse affects. PT-OP-T Assessment and Plan Start: 08/01/21 12:54 Freq: Status: Active Protocol: Document 08/11/21 07:31 SP (Rec: 08/11/21 08:18 SP [id number]) Physical Therapy Assessment Goals Four Impairment lifting Prison Goal (LTG) Pt will be able to lift and hold her 2 yo niece with no increase in baseline pain LTG Duration 10 weeks - 10/11/21 Three Impairment ROM Short Term Goal (STG) Pt will improve right shoulder flexion and abduction to match left shoulder without increase in baseline pain STG Duration 4 weeks -08/30/21 Prison Goal (LTG) Pt will improve right shoulder internal rotation from L3 to T12 or higher without increase in baseline pain to improve function in daily activities. LTG Duration 10 weeks - 10/11/21 Two Impairment pain with daily activities and job performance Short Term Goal (STG) Pt able to dress and undress upper body without increase in baseline pain. 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 Pt reported decrease muscle tightness post manual and self under instruction use of theracane with good feedback results. Initiated supine pec stretch/Ts, 1/2 X with report does open up tight pecs and with slow movement not painful in R shld/ neck. Iniatiated open book hand on head bent arm with decreased shld jt tension with good pec stretch and mid back movement. Physical Therapy Plan Frequency and Duration Frequency of Treatment 1-2x/week Duration of Treatment 10 weeks Plan of Care Start Date 08/02/21 Plan of Care End Date 10/11/21 Therapeutic Interventions Therapeutic Interventions Home Exercise Program,Joint Mobilizations,Manual Therapy, Neuromuscular Re-education, Self-Care/Home Management,Soft Tissue Mobilization,Taping, Therapeutic Activities, Therapeutic Exercises Modalities Cold Pack/Ice Massage,Electric Stimulation,Hot Packs Next Visit Focus/Plan Next Note Type Treatment Note Next Visit Plan Review HEP: especially thoracic mobility; reassess quadruped activities in preparation for return to yoga
--- NOTE | 2021-08-16 17:15 | PT.OTN ---
Current Diagnoses Pain in right shoulder (08/16/21) Abnormal posture (08/16/21) Physical Therapy Treatment Note PT-OP-A Visit Information Start: 08/01/21 12:54 Freq: Status: Active Protocol: Document 08/16/21 13:31 AW (Rec: 08/16/21 15:17 AW [id number]) Out-Patient Physical Therapy Visit Information Visit Information Visit Type Treatment Note Visit Start Time 14:30 Visit Stop Time 15:15 Total Visit Minutes 45 Visit Number 5/9 Number of [employer] Visits 0 Evaluation Information Evaluation Date 08/02/21 PT-OP-B Current Condition Start: 08/01/21 12:54 Freq: Status: Active Protocol: Document 08/02/21 16:00 AW (Rec: 08/01/21 13:01 AW [id number]) Current Condition History of Current Condition Onset Date gradual; ~ 3 months Current Complaints right shoulder and neck pain History of Current Condition Elli began babysitting her 2 yo great niece in April and found herself picking up and holding the child frequently. She started to have shoulder and neck pain on the right side over the first month which has continued. She describes her pain as deep and achey. It starts in the right upper trap and extends up behind her ear and down to collar bone. The pain is affecting her driving, reading, texting. She finds relief with getting the arm into extension or stretching into flexion. Pain is fairly constant. Heat helps. Some stretches help. Pt notices her posture is getting sloppier recently. She has trouble carrying grocery bags. Taking shirts off has become difficult. She fears she may be overdoing it with her left shoulder and starting to fee achey there as well. Taking shirts off has been problematic. 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 Her shoulder pain is interfering with her ability to complete her job duties such as lifting, wiping, and cleaning. Of note, pt did fracture her left great toe distal phalanx around the same time she started to have shoulder pain but does not feel they are related. Pt has felt unable to participate in her regular yoga practice. She is right-hand dominant. Prior Treatments and Tests Pt has used heat and ice with some relief Future Testing and Treatments Planned None identified Treatment Goals Patient/Caregiver Goals Return to yoga, be able to lift and carry her 2 yo niece, be able to complete job duties with less pain. Personal Factors Other Personal Factors That May Effect (+) good awareness of posture Therapy/Recovery and breathing mechanics PT-OP-C Subjective Start: 08/01/21 12:54 Freq: Status: Active Protocol: Document 08/16/21 13:31 AW (Rec: 08/16/21 15:17 AW [id number]) OP-PT Subjective Patient Comments Patient Comments Pt has had difficulty modifying activity and is feeling more sore today after spending time with 2 yo this morning. PT-OP-F Manual Assessment Start: 08/01/21 12:54 Freq: Status: Active Protocol: Document 08/02/21 16:00 AW (Rec: 08/02/21 16:38 AW [id number]) Manual Assessments Soft Tissue Assessment Soft Tissue Mobility Assessment Increased density in right scalenes, SCM, pec minor and upper trapezius compared with left. Joint Mobility Assessment Joint Mobility Assessment GH posterior and inferior glides WNL bilaterally. No point tenderness at A/C or S/C joints. PT-OP-J Posture/Palpation/Skin Start: 08/01/21 12:54 Freq: Status: Active Protocol: Document 08/02/21 16:00 AW (Rec: 08/02/21 16:38 AW [id number]) Posture Evaluation Position Sitting Head/C-Spine Posture Forward Head Shoulder Posture (L) Rounded,(R) Rounded Scapula Posture (L) Protracted,(R) Protracted PT-OP-K Range of Motion Start: 08/01/21 12:54 Freq: Status: Active Protocol: Document 08/02/21 16:00 AW (Rec: 08/02/21 16:38 AW [id number]) Cervical Spine Range of Motion Cervical Spine Active Testing Position Sitting Flexion 30 Extension 50 Rotation Left 53 Rotation Right 48 Lateral Flexion Left 30 Lateral Flexion Right 25 ROM Limitations Soft Tissue Tightness,Pain Shoulder Goniometric Range of Motion Shoulder Right Active Testing Position Sitting Flexion 170 Extension 36 Abduction 150 External Rotation at 0 degrees Abduction 50 Internal Rotation Behind Back (text) L3 Left Active Testing Position Sitting Flexion 170 Extension 45 Abduction 170 External Rotation at 0 degrees Abduction 75 Internal Rotation Behind Back (text) T5 Elbow/Forearm Range of Motion Elbow/Forearm bilat Elbow/Forearm ROM WFL Yes PT-OP-L Special Tests Start: 08/01/21 12:54 Freq: Status: Active Protocol: Document 08/02/21 16:00 AW (Rec: 08/02/21 16:52 AW [id number]) Special Tests Cervical Spine Special Tests Spurling's Test Test Results negative bilaterally Shoulder Special Tests Painful Arc Test Results positive at 120 degrees on the right AC Joint Compression Test Results negative bilaterally Bridges Edgar Impingement Test Results positive right; negative left Drop Arm Rotator Cuff Test Results negative PT-OP-M Strength Start: 08/01/21 12:54 Freq: Status: Active Protocol: Document 08/02/21 16:00 AW (Rec: 08/02/21 16:52 AW [id number]) Shoulder Strength Shoulder Manual Muscle Testing bilat Flexion 5 Normal Extension 5 Normal Abduction (C5) 5 Normal External Rotation 4+ Good+ Internal Rotation 5 Normal Comments Strength is good and symmetrical but resisted flexion, abduction, and external rotation reproduce pain symptoms on the right side. Elbow/Forearm Strength Elbow and Forearm Manual Muscle Testing bilat Flexion (C6) 5 Normal Extension (C7) 5 Normal Comments Resisted elbow flexion on the right reproduces anterior shoulder pain PT-OP-Q Treatments Start: 08/01/21 12:54 Freq: Status: Active Protocol: Document 08/16/21 13:31 AW (Rec: 08/16/21 15:17 AW [id number]) Therapeutic Exercises Supine Exercises Ts, 1/2 X Supine Exercise Name added to HEP Side bilateral Equipment Used noodle (pipe insulation has at home) Reps/Minutes x5 Comments reviewed for HEP pec stretch Supine Exercise Name pec stretch Equipment Used noodle (pipe insulation has at home) Reps/Minutes 60 sec x 2 various ranges Sidelying Exercises open book thoracic rotation Sidelying Exercise Name open book thoracic rotation Side bilateral Reps/Minutes 8 reps Comments reviewed short lever arm with hand on head and pt prefers Sitting Exercises lev scap stretch Sitting Exercise Name lev scap stretch Side right Reps/Minutes 30SH x 4 Comments HEP scalene stretch Sitting Exercise Name scalene stretch Side right Equipment Used towel Reps/Minutes 30 SH x 4 Comments HEP Manual Therapy Treatment Soft Tissue Mobilization Pec, interscap, infraspinatus Mobilization Type Rolling,Strumming,Sustained Pressure,Other Intensity/Depth Moderate Body Position Hooklying Comments special attention to pec minor UT, SCM, scalenes, suboccipitals Body Location UT, SCM, scalenes, suboccipitals Mobilization Type Cross-Friction,Rolling, Strumming,Sustained Pressure, Trigger Point Release Intensity/Depth Moderate Body Position Hooklying Comments manual and MWM Joint Mobilizations scapulothoracic Joint scapulothoracic Direction inferior, medial, rotation Body Position Sidelying Comments Manipulated scapula for lev scap lengthening and to reduce tension at pec minor 1st rib Joint 1st rib (R) Direction inferior Grade III Body Position Hooklying Comments to address palpable elevation on the right compared with left Self-Care/Home Management Treatment Education Patient Education Joint Protection,Posture Other Education Continued education on importance of activity modification, rest for RUE. PT-OP-T Assessment and Plan Start: 08/01/21 12:54 Freq: Status: Active Protocol: Document 08/16/21 13:31 AW (Rec: 08/16/21 15:17 AW [id number]) Physical Therapy Assessment Goals Four Impairment lifting Naturopathic Physician Goal (LTG) Pt will be able to lift and hold her 2 yo niece with no increase in baseline pain LTG Duration 10 weeks - 10/11/21 Three Impairment ROM Short Term Goal (STG) Pt will improve right shoulder flexion and abduction to match left shoulder without increase in baseline pain STG Duration 4 weeks -08/30/21 Naturopathic Physician Goal (LTG) Pt will improve right shoulder internal rotation from L3 to T12 or higher without increase in baseline pain to improve function in daily activities. LTG Duration 10 weeks - 10/11/21 Two Impairment pain with daily activities and job performance Short Term Goal (STG) Pt able to dress and undress upper body without increase in baseline pain. STG Duration 4 weeks -08/30/21 Skilled Nursing Goal (LTG) Pt able to wipe tables at work 3 days in a row with no increase in baseline pain LTG Duration 10 weeks - 10/11/21 One Impairment lacks HEP Short Term Goal (STG) Pt will be independent with HEP for shoulder ROM, strength , and pain management to support therapy services provided in clinic STG Duration 4 weeks -08/30/21 Assessment Summary Assessment Pt continues to have pain in right side neck and above/ below right clavicle. She has not been able to significantly modify her activity to rest her right arm. She responds well to scapular mobilization to reduce tension on levator scap and pec minor, reports feeling better on her way out today. Physical Therapy Plan Frequency and Duration Frequency of Treatment 1-2x/week Duration of Treatment 10 weeks Plan of Care Start Date 08/02/21 Plan of Care End Date 10/11/21 Therapeutic Interventions Therapeutic Interventions Home Exercise Program,Joint Mobilizations,Manual Therapy, Neuromuscular Re-education, Self-Care/Home Management,Soft Tissue Mobilization,Taping, Therapeutic Activities, Therapeutic Exercises Modalities Cold Pack/Ice Massage,Electric Stimulation,Hot Packs Next Visit Focus/Plan Next Note Type Treatment Note Next Visit Plan Review HEP: continue STM, scapular mobs; consider functional patterns for right shoulder; reassess quadruped activities in preparation for return to yoga
--- NOTE | 2021-08-19 08:13 | PT.OTN ---
Current Diagnoses Pain in right shoulder (08/19/21) Abnormal posture (08/19/21) Physical Therapy Treatment Note PT-OP-A Visit Information Start: 08/01/21 12:54 Freq: Status: Active Protocol: Document 08/19/21 07:30 SP (Rec: 08/19/21 12:57 SP [id number]) Out-Patient Physical Therapy Visit Information Visit Information Visit Type Treatment Note Visit Start Time 07:30 Visit Stop Time 08:13 Total Visit Minutes 42 Visit Number 6/9 Number of MAJOR ASSEMBLER Visits 1 Evaluation Information Evaluation Date 08/02/21 PT-OP-B Current Condition Start: 08/01/21 12:54 Freq: Status: Active Protocol: Document 08/02/21 16:00 AW (Rec: 08/01/21 13:01 AW [id number]) Current Condition History of Current Condition Onset Date gradual; ~ 3 months Current Complaints right shoulder and neck pain History of Current Condition Elli began babysitting her 2 yo great niece in April and found herself picking up and holding the child frequently. She started to have shoulder and neck pain on the right side over the first month which has continued. She describes her pain as deep and achey. It starts in the right upper trap and extends up behind her ear and down to collar bone. The pain is affecting her driving, reading, texting. She finds relief with getting the arm into extension or stretching into flexion. Pain is fairly constant. Heat helps. Some stretches help. Pt notices her posture is getting sloppier recently. She has trouble carrying grocery bags. Taking shirts off has become difficult. She fears she may be overdoing it with her left shoulder and starting to fee achey there as well. Taking shirts off has been problematic. 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 Her shoulder pain is interfering with her ability to complete her job duties such as lifting, wiping, and cleaning. Of note, pt did fracture her left great toe distal phalanx around the same time she started to have shoulder pain but does not feel they are related. Pt has felt unable to participate in her regular yoga practice. She is right-hand dominant. Prior Treatments and Tests Pt has used heat and ice with some relief Future Testing and Treatments Planned None identified Treatment Goals Patient/Caregiver Goals Return to yoga, be able to lift and carry her 2 yo niece, be able to complete job duties with less pain. Personal Factors Other Personal Factors That May Effect (+) good awareness of posture Therapy/Recovery and breathing mechanics PT-OP-C Subjective Start: 08/01/21 12:54 Freq: Status: Active Protocol: Document 08/19/21 07:30 SP (Rec: 08/19/21 12:57 SP [id number]) OP-PT Subjective Patient Comments Patient Comments Pt stated doing better after last tx when realized modify activity. She states woke up with morning stiffness did some UE ROM/shld rolls/ postural stretch. She requested some core exercises to help support posture so not over using her R shld and neck, feel core vulnerable. She states is compliant with stretch HEP, wants to go over if better ways to sweep, R Shld and neck start to hurt when performing. PT-OP-F Manual Assessment Start: 08/01/21 12:54 Freq: Status: Active Protocol: Document 08/02/21 16:00 AW (Rec: 08/02/21 16:38 AW [id number]) Manual Assessments Soft Tissue Assessment Soft Tissue Mobility Assessment Increased density in right scalenes, SCM, pec minor and upper trapezius compared with left. Joint Mobility Assessment Joint Mobility Assessment GH posterior and inferior glides WNL bilaterally. No point tenderness at A/C or S/C joints. PT-OP-J Posture/Palpation/Skin Start: 08/01/21 12:54 Freq: Status: Active Protocol: Document 08/02/21 16:00 AW (Rec: 08/02/21 16:38 AW [id number]) Posture Evaluation Position Sitting Head/C-Spine Posture Forward Head Shoulder Posture (L) Rounded,(R) Rounded Scapula Posture (L) Protracted,(R) Protracted PT-OP-K Range of Motion Start: 08/01/21 12:54 Freq: Status: Active Protocol: Document 08/02/21 16:00 AW (Rec: 08/02/21 16:38 AW [id number]) Cervical Spine Range of Motion Cervical Spine Active Testing Position Sitting Flexion 30 Extension 50 Rotation Left 53 Rotation Right 48 Lateral Flexion Left 30 Lateral Flexion Right 25 ROM Limitations Soft Tissue Tightness,Pain Shoulder Goniometric Range of Motion Shoulder Right Active Testing Position Sitting Flexion 170 Extension 36 Abduction 150 External Rotation at 0 degrees Abduction 50 Internal Rotation Behind Back (text) L3 Left Active Testing Position Sitting Flexion 170 Extension 45 Abduction 170 External Rotation at 0 degrees Abduction 75 Internal Rotation Behind Back (text) T5 Elbow/Forearm Range of Motion Elbow/Forearm bilat Elbow/Forearm ROM WFL Yes PT-OP-L Special Tests Start: 08/01/21 12:54 Freq: Status: Active Protocol: Document 08/02/21 16:00 AW (Rec: 08/02/21 16:52 AW [id number]) Special Tests Cervical Spine Special Tests Spurling's Test Test Results negative bilaterally Shoulder Special Tests Painful Arc Test Results positive at 120 degrees on the right AC Joint Compression Test Results negative bilaterally Bridges Edgar Impingement Test Results positive right; negative left Drop Arm Rotator Cuff Test Results negative PT-OP-M Strength Start: 08/01/21 12:54 Freq: Status: Active Protocol: Document 08/02/21 16:00 AW (Rec: 08/02/21 16:52 AW [id number]) Shoulder Strength Shoulder Manual Muscle Testing bilat Flexion 5 Normal Extension 5 Normal Abduction (C5) 5 Normal External Rotation 4+ Good+ Internal Rotation 5 Normal Comments Strength is good and symmetrical but resisted flexion, abduction, and external rotation reproduce pain symptoms on the right side. Elbow/Forearm Strength Elbow and Forearm Manual Muscle Testing bilat Flexion (C6) 5 Normal Extension (C7) 5 Normal Comments Resisted elbow flexion on the right reproduces anterior shoulder pain PT-OP-Q Treatments Start: 08/01/21 12:54 Freq: Status: Active Protocol: Document 08/19/21 07:30 SP (Rec: 08/19/21 12:57 SP [id number]) Therapeutic Exercises Sitting Exercises lev scap stretch Sitting Exercise Name lev scap stretch Side right Reps/Minutes 30SH x 4 Comments reviewed HEP scalene stretch Sitting Exercise Name scalene stretch Side right Equipment Used towel Reps/Minutes 30 SH x 4 Comments reviewed HEP scapular retraction Sitting Exercise Name scapular retraction Side bilateral Resistance AROM Comments reviewed HEP Standing Exercises R shld ER Standing Exercise Name w/ towel roll under arm- added to HEP Side right Resistance TB #1 to neutral front w/ elbow bent Equipment Used towel roll under arm Reps/Minutes 2x5 reps Comments improved scap retract/depress post cues, good self corrects con/ecc painfre self STMs Standing Exercise Name UT, inter scap; pec facing corner Side right Equipment Used racquetball at wall Reps/Minutes 2 min Comments rolling, decreased post scap tightness. Manual Therapy Treatment Soft Tissue Mobilization Pec, interscap, infraspinatus Body Location R Mobilization Type Rolling,Strumming,Sustained Pressure,Other Intensity/Depth Moderate Body Position Hooklying Comments special attention to pec minor UT, SCM, scalenes, suboccipitals Body Location UT, SCM, scalenes, suboccipitals Mobilization Type Cross-Friction,Rolling, Strumming,Sustained Pressure, Trigger Point Release Intensity/Depth Moderate Body Position Hooklying Comments manual and MWM Joint Mobilizations scapulothoracic Joint scapulothoracic Direction inferior, medial, rotation Body Position Sidelying Comments Manipulated scapula for lev scap lengthening and to reduce tension at pec minor, then PNF training, slow gently ROM stability posture positioning. Self-Care/Home Management Treatment Education Patient Education Home Exercise Program,Joint Protection,Posture Other Education REviewed education on importance of activity modification, rest for RUE for tiring, irritation recovery and use of stretching/ self STMs and or modality when needed. Initiated initiated shld ER. Activities Self-Care/Home Management Activities Time spent education anatomy of neck/ shld relationship and postural alignment sleeping, standing/ during activity. Education in body mechanics sweeping: cued upright trunk/ postural alignment: CS neutral /scap retract/ depressed neutral positioning, use LEs and wt shift, hip hinge if reaching under tables and utilize BUE for both side body balance usage. Good carryover self corrections post demonstration, reported painfree. PT-OP-T Assessment and Plan Start: 08/01/21 12:54 Freq: Status: Active Protocol: Document 08/19/21 07:30 SP (Rec: 08/19/21 12:57 SP [id number]) Physical Therapy Assessment Goals Four Impairment lifting Usp Goal (LTG) Pt will be able to lift and hold her 2 yo niece with no increase in baseline pain LTG Duration 10 weeks - 10/11/21 Three Impairment ROM Short Term Goal (STG) Pt will improve right shoulder flexion and abduction to match left shoulder without increase in baseline pain STG Duration 4 weeks -08/30/21 Usp Goal (LTG) Pt will improve right shoulder internal rotation from L3 to T12 or higher without increase in baseline pain to improve function in daily activities. LTG Duration 10 weeks - 10/11/21 Two Impairment pain with daily activities and job performance Short Term Goal (STG) Pt able to dress and undress upper body without increase in baseline pain. 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 Reviewed self stretching HEP complimented manual cues for trunk alignment during ther ex as needed and how apply to sweeping with out pain. Tolerated initiated resisted R shld ER well, good self awareness stabilize positioning of scap complex corrections for painfree, feel muscle tiring, not pain. Internet/ computers down during appt, couldn't print out Shld ER recheck and give her her copy next appt. Physical Therapy Plan Frequency and Duration Frequency of Treatment 1-2x/week Duration of Treatment 10 weeks Plan of Care Start Date 08/02/21 Plan of Care End Date 10/11/21 Therapeutic Interventions Therapeutic Interventions Home Exercise Program,Joint Mobilizations,Manual Therapy, Neuromuscular Re-education, Self-Care/Home Management,Soft Tissue Mobilization,Taping, Therapeutic Activities, Therapeutic Exercises Modalities Cold Pack/Ice Massage,Electric Stimulation,Hot Packs Next Visit Focus/Plan Next Note Type Treatment Note Next Visit Plan Review HEP: recheck shld ER, continue STM, scapular mobs; consider functional patterns for right shoulder; reassess quadruped activities in preparation for return to yoga
--- NOTE | 2021-08-23 17:19 | PT.OTN ---
Current Diagnoses Pain in right shoulder (08/23/21) Abnormal posture (08/23/21) Physical Therapy Treatment Note PT-OP-A Visit Information Start: 08/01/21 12:54 Freq: Status: Active Protocol: Document 08/23/21 13:49 AW (Rec: 08/23/21 14:31 AW [id number]) Out-Patient Physical Therapy Visit Information Visit Information Visit Type Treatment Note Visit Start Time 13:45 Visit Stop Time 14:27 Total Visit Minutes 42 Visit Number 7/9 Number of FACTORY MACHINE COMPUTER OPERATOR Visits 1 Evaluation Information Evaluation Date 08/02/21 PT-OP-B Current Condition Start: 08/01/21 12:54 Freq: Status: Active Protocol: Document 08/02/21 16:00 AW (Rec: 08/01/21 13:01 AW [id number]) Current Condition History of Current Condition Onset Date gradual; ~ 3 months Current Complaints right shoulder and neck pain History of Current Condition Elli began babysitting her 2 yo great niece in April and found herself picking up and holding the child frequently. She started to have shoulder and neck pain on the right side over the first month which has continued. She describes her pain as deep and achey. It starts in the right upper trap and extends up behind her ear and down to collar bone. The pain is affecting her driving, reading, texting. She finds relief with getting the arm into extension or stretching into flexion. Pain is fairly constant. Heat helps. Some stretches help. Pt notices her posture is getting sloppier recently. She has trouble carrying grocery bags. Taking shirts off has become difficult. She fears she may be overdoing it with her left shoulder and starting to fee achey there as well. Taking shirts off has been problematic. 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 Her shoulder pain is interfering with her ability to complete her job duties such as lifting, wiping, and cleaning. Of note, pt did fracture her left great toe distal phalanx around the same time she started to have shoulder pain but does not feel they are related. Pt has felt unable to participate in her regular yoga practice. She is right-hand dominant. Prior Treatments and Tests Pt has used heat and ice with some relief Future Testing and Treatments Planned None identified Treatment Goals Patient/Caregiver Goals Return to yoga, be able to lift and carry her 2 yo niece, be able to complete job duties with less pain. Personal Factors Other Personal Factors That May Effect (+) good awareness of posture Therapy/Recovery and breathing mechanics PT-OP-C Subjective Start: 08/01/21 12:54 Freq: Status: Active Protocol: Document 08/23/21 13:49 AW (Rec: 08/23/21 14:31 AW [id number]) OP-PT Subjective Patient Comments Patient Comments Pt states was doing better until rolled over in bed last night and put weight on right arm. Now painful in neck and shoulder but overall improving . Patient Reported Progress Improving PT-OP-F Manual Assessment Start: 08/01/21 12:54 Freq: Status: Active Protocol: Document 08/02/21 16:00 AW (Rec: 08/02/21 16:38 AW [id number]) Manual Assessments Soft Tissue Assessment Soft Tissue Mobility Assessment Increased density in right scalenes, SCM, pec minor and upper trapezius compared with left. Joint Mobility Assessment Joint Mobility Assessment GH posterior and inferior glides WNL bilaterally. No point tenderness at A/C or S/C joints. PT-OP-J Posture/Palpation/Skin Start: 08/01/21 12:54 Freq: Status: Active Protocol: Document 08/02/21 16:00 AW (Rec: 08/02/21 16:38 AW [id number]) Posture Evaluation Position Sitting Head/C-Spine Posture Forward Head Shoulder Posture (L) Rounded,(R) Rounded Scapula Posture (L) Protracted,(R) Protracted PT-OP-K Range of Motion Start: 08/01/21 12:54 Freq: Status: Active Protocol: Document 08/02/21 16:00 AW (Rec: 08/02/21 16:38 AW [id number]) Cervical Spine Range of Motion Cervical Spine Active Testing Position Sitting Flexion 30 Extension 50 Rotation Left 53 Rotation Right 48 Lateral Flexion Left 30 Lateral Flexion Right 25 ROM Limitations Soft Tissue Tightness,Pain Shoulder Goniometric Range of Motion Shoulder Right Active Testing Position Sitting Flexion 170 Extension 36 Abduction 150 External Rotation at 0 degrees Abduction 50 Internal Rotation Behind Back (text) L3 Left Active Testing Position Sitting Flexion 170 Extension 45 Abduction 170 External Rotation at 0 degrees Abduction 75 Internal Rotation Behind Back (text) T5 Elbow/Forearm Range of Motion Elbow/Forearm bilat Elbow/Forearm ROM WFL Yes PT-OP-L Special Tests Start: 08/01/21 12:54 Freq: Status: Active Protocol: Document 08/02/21 16:00 AW (Rec: 08/02/21 16:52 AW [id number]) Special Tests Cervical Spine Special Tests Spurling's Test Test Results negative bilaterally Shoulder Special Tests Painful Arc Test Results positive at 120 degrees on the right AC Joint Compression Test Results negative bilaterally Bridges Edgar Impingement Test Results positive right; negative left Drop Arm Rotator Cuff Test Results negative PT-OP-M Strength Start: 08/01/21 12:54 Freq: Status: Active Protocol: Document 08/02/21 16:00 AW (Rec: 08/02/21 16:52 AW [id number]) Shoulder Strength Shoulder Manual Muscle Testing bilat Flexion 5 Normal Extension 5 Normal Abduction (C5) 5 Normal External Rotation 4+ Good+ Internal Rotation 5 Normal Comments Strength is good and symmetrical but resisted flexion, abduction, and external rotation reproduce pain symptoms on the right side. Elbow/Forearm Strength Elbow and Forearm Manual Muscle Testing bilat Flexion (C6) 5 Normal Extension (C7) 5 Normal Comments Resisted elbow flexion on the right reproduces anterior shoulder pain PT-OP-Q Treatments Start: 08/01/21 12:54 Freq: Status: Active Protocol: Document 08/23/21 13:49 AW (Rec: 08/23/21 14:31 AW [id number]) Therapeutic Exercises Sidelying Exercises open book thoracic rotation Sidelying Exercise Name open book thoracic rotation Side bilateral Reps/Minutes 8 reps Comments reviewed short lever arm with hand on head and pt prefers Sitting Exercises scalene stretch Sitting Exercise Name scalene stretch Side right Equipment Used towel Reps/Minutes 30 SH x 4 Comments reviewed HEP Standing Exercises PNF D1 flexion Standing Exercise Name PNF D1 flexion Side right Resistance AROM Comments cued pain free elevation; HEP R shld ER Standing Exercise Name w/ towel roll under arm- added to HEP Side right Resistance TB #1 to neutral front w/ elbow bent Equipment Used towel roll under arm Reps/Minutes 2x5 reps Comments HEP Manual Therapy Treatment Soft Tissue Mobilization UT, SCM, scalenes, suboccipitals Body Location UT, SCM, scalenes, suboccipitals Mobilization Type Cross-Friction,Rolling, Strumming,Sustained Pressure, Trigger Point Release Intensity/Depth Moderate Body Position Hooklying Comments manual and MWM Joint Mobilizations scapulothoracic Joint scapulothoracic Direction inferior, medial, rotation Body Position Sidelying Comments Manipulated scapula for lev scap lengthening and to reduce tension at pec minor, then PNF training - anterior elevation, posterior depression. PT-OP-T Assessment and Plan Start: 08/01/21 12:54 Freq: Status: Active Protocol: Document 08/23/21 13:49 AW (Rec: 08/23/21 14:31 AW [id number]) Physical Therapy Assessment Goals Four Impairment lifting Senior Project Accountant Goal (LTG) Pt will be able to lift and hold her 2 yo niece with no increase in baseline pain LTG Duration 10 weeks - 10/11/21 Three Impairment ROM Short Term Goal (STG) Pt will improve right shoulder flexion and abduction to match left shoulder without increase in baseline pain STG Duration 4 weeks -08/30/21 Senior Project Accountant Goal (LTG) Pt will improve right shoulder internal rotation from L3 to T12 or higher without increase in baseline pain to improve function in daily activities. LTG Duration 10 weeks - 10/11/21 Two Impairment pain with daily activities and job performance Short Term Goal (STG) Pt able to dress and undress upper body without increase in baseline pain. 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 Activity modification has improved and pain symptoms are decreasing. Started functional pattern (D1 flexion) today with no resistance and pt tolerated well. Physical Therapy Plan Frequency and Duration Frequency of Treatment 1-2x/week Duration of Treatment 10 weeks Plan of Care Start Date 08/02/21 Plan of Care End Date 10/11/21 Therapeutic Interventions Therapeutic Interventions Home Exercise Program,Joint Mobilizations,Manual Therapy, Neuromuscular Re-education, Self-Care/Home Management,Soft Tissue Mobilization,Taping, Therapeutic Activities, Therapeutic Exercises Modalities Cold Pack/Ice Massage,Electric Stimulation,Hot Packs Next Visit Focus/Plan Next Note Type Treatment Note Next Visit Plan Review HEP: recheck shld ER, D1 flexion; continue STM, scapular mobs; consider modified plantigrade activities in preparation for return to yoga
--- NOTE | 2021-08-25 17:07 | PT.OTN ---
Current Diagnoses Pain in right shoulder (08/25/21) Abnormal posture (08/25/21) Physical Therapy Treatment Note PT-OP-A Visit Information Start: 08/01/21 12:54 Freq: Status: Active Protocol: Document 08/25/21 15:17 AW (Rec: 08/25/21 16:02 AW [id number]) Out-Patient Physical Therapy Visit Information Visit Information Visit Type Treatment Note Visit Start Time 15:17 Visit Stop Time 16:00 Total Visit Minutes 43 Visit Number 8/9 Evaluation Information Evaluation Date 08/02/21 PT-OP-B Current Condition Start: 08/01/21 12:54 Freq: Status: Active Protocol: Document 08/02/21 16:00 AW (Rec: 08/01/21 13:01 AW [id number]) Current Condition History of Current Condition Onset Date gradual; ~ 3 months Current Complaints right shoulder and neck pain History of Current Condition Elli began babysitting her 2 yo great niece in April and found herself picking up and holding the child frequently. She started to have shoulder and neck pain on the right side over the first month which has continued. She describes her pain as deep and achey. It starts in the right upper trap and extends up behind her ear and down to collar bone. The pain is affecting her driving, reading, texting. She finds relief with getting the arm into extension or stretching into flexion. Pain is fairly constant. Heat helps. Some stretches help. Pt notices her posture is getting sloppier recently. She has trouble carrying grocery bags. Taking shirts off has become difficult. She fears she may be overdoing it with her left shoulder and starting to fee achey there as well. Taking shirts off has been problematic. 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 Her shoulder pain is interfering with her ability to complete her job duties such as lifting, wiping, and cleaning. Of note, pt did fracture her left great toe distal phalanx around the same time she started to have shoulder pain but does not feel they are related. Pt has felt unable to participate in her regular yoga practice. She is right-hand dominant. Prior Treatments and Tests Pt has used heat and ice with some relief Future Testing and Treatments Planned None identified Treatment Goals Patient/Caregiver Goals Return to yoga, be able to lift and carry her 2 yo niece, be able to complete job duties with less pain. Personal Factors Other Personal Factors That May Effect (+) good awareness of posture Therapy/Recovery and breathing mechanics PT-OP-C Subjective Start: 08/01/21 12:54 Freq: Status: Active Protocol: Document 08/25/21 15:17 AW (Rec: 08/25/21 16:02 AW [id number]) OP-PT Subjective Patient Comments Patient Comments Went into total rest mode yesterday afternoon - not driving car, not using arm. Just using tennis ball self STM and some stretches. Wants advice on how to safely interact with toddler. PT-OP-F Manual Assessment Start: 08/01/21 12:54 Freq: Status: Active Protocol: Document 08/02/21 16:00 AW (Rec: 08/02/21 16:38 AW [id number]) Manual Assessments Soft Tissue Assessment Soft Tissue Mobility Assessment Increased density in right scalenes, SCM, pec minor and upper trapezius compared with left. Joint Mobility Assessment Joint Mobility Assessment GH posterior and inferior glides WNL bilaterally. No point tenderness at A/C or S/C joints. PT-OP-J Posture/Palpation/Skin Start: 08/01/21 12:54 Freq: Status: Active Protocol: Document 08/02/21 16:00 AW (Rec: 08/02/21 16:38 AW [id number]) Posture Evaluation Position Sitting Head/C-Spine Posture Forward Head Shoulder Posture (L) Rounded,(R) Rounded Scapula Posture (L) Protracted,(R) Protracted PT-OP-K Range of Motion Start: 08/01/21 12:54 Freq: Status: Active Protocol: Document 08/02/21 16:00 AW (Rec: 08/02/21 16:38 AW [id number]) Cervical Spine Range of Motion Cervical Spine Active Testing Position Sitting Flexion 30 Extension 50 Rotation Left 53 Rotation Right 48 Lateral Flexion Left 30 Lateral Flexion Right 25 ROM Limitations Soft Tissue Tightness,Pain Shoulder Goniometric Range of Motion Shoulder Right Active Testing Position Sitting Flexion 170 Extension 36 Abduction 150 External Rotation at 0 degrees Abduction 50 Internal Rotation Behind Back (text) L3 Left Active Testing Position Sitting Flexion 170 Extension 45 Abduction 170 External Rotation at 0 degrees Abduction 75 Internal Rotation Behind Back (text) T5 Elbow/Forearm Range of Motion Elbow/Forearm bilat Elbow/Forearm ROM WFL Yes PT-OP-L Special Tests Start: 08/01/21 12:54 Freq: Status: Active Protocol: Document 08/02/21 16:00 AW (Rec: 08/02/21 16:52 AW [id number]) Special Tests Cervical Spine Special Tests Spurling's Test Test Results negative bilaterally Shoulder Special Tests Painful Arc Test Results positive at 120 degrees on the right AC Joint Compression Test Results negative bilaterally Bridges Edgar Impingement Test Results positive right; negative left Drop Arm Rotator Cuff Test Results negative PT-OP-M Strength Start: 08/01/21 12:54 Freq: Status: Active Protocol: Document 08/02/21 16:00 AW (Rec: 08/02/21 16:52 AW [id number]) Shoulder Strength Shoulder Manual Muscle Testing bilat Flexion 5 Normal Extension 5 Normal Abduction (C5) 5 Normal External Rotation 4+ Good+ Internal Rotation 5 Normal Comments Strength is good and symmetrical but resisted flexion, abduction, and external rotation reproduce pain symptoms on the right side. Elbow/Forearm Strength Elbow and Forearm Manual Muscle Testing bilat Flexion (C6) 5 Normal Extension (C7) 5 Normal Comments Resisted elbow flexion on the right reproduces anterior shoulder pain PT-OP-Q Treatments Start: 08/01/21 12:54 Freq: Status: Active Protocol: Document 08/25/21 15:17 AW (Rec: 08/25/21 16:02 AW [id number]) Therapeutic Exercises Sidelying Exercises open book thoracic rotation Sidelying Exercise Name open book thoracic rotation Side bilateral Reps/Minutes 8 reps Comments reviewed short lever arm with hand on head and pt prefers Sitting Exercises table slides Sitting Exercise Name table slides Side right Comments flex, scapt, abd lev scap stretch Sitting Exercise Name lev scap stretch Side right Reps/Minutes 30SH x 4 Comments reviewed HEP scalene stretch Sitting Exercise Name scalene stretch Side right Equipment Used towel Reps/Minutes 30 SH x 4 Comments reviewed HEP Standing Exercises PNF D1 flexion Standing Exercise Name PNF D1 flexion Side right Resistance AROM Comments reviewed for HEP Manual Therapy Treatment Soft Tissue Mobilization UT, SCM, scalenes, suboccipitals Body Location UT, SCM, scalenes, suboccipitals Mobilization Type Cross-Friction,Rolling, Strumming,Sustained Pressure, Trigger Point Release Intensity/Depth Moderate Body Position Hooklying Comments manual and MWM Joint Mobilizations scapulothoracic Joint scapulothoracic Direction inferior, medial, rotation Body Position Sidelying Comments Manipulated scapula for lev scap lengthening and to reduce tension at pec minor, then PNF training - anterior elevation, posterior depression. Taping shoulder taping Body Location R shoulder Treatment Focus pain management Type of Tape K tape Skin Inspection intact Comments 3 I strips over AC joint. Pt educated to remove tape if skin irritated and not to leave on more than 4 days total. Self-Care/Home Management Treatment Education Patient Education Joint Protection,Pain Management Other Education Recommended continued activity modification and use of soft sling as needed around toddler for social cues and joint protection. 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 LTG Duration 10 weeks - 10/11/21 Two Impairment pain with daily activities and job performance Short Term Goal (STG) Pt able to dress and undress upper body without increase in baseline pain. STG Duration 4 weeks -08/30/21 Jail Goal (LTG) Pt able to wipe tables at work 3 days in a row with no increase in baseline pain LTG Duration 10 weeks - 10/11/21 One Impairment lacks HEP Short Term Goal (STG) Pt will be independent with HEP for shoulder ROM, strength , and pain management to support therapy services provided in clinic STG Duration 4 weeks -08/30/21 Assessment Summary Assessment Pt radically altered level of activity yesterday after dealing with increased pain for two days. She feels better today but more acutely aware of pain with simple reaching movements. Educated pt in possible use of soft sling for situations such as caring for toddler as a reminder to limit use of right arm. Pt is aware of insurance limitations with just one visit remaining on authorization and elects to cancel all but one appointment on 09/14 for a final check in. Physical Therapy Plan Frequency and Duration Frequency of Treatment 1-2x/week Duration of Treatment 10 weeks Plan of Care Start Date 08/02/21 Plan of Care End Date 10/11/21 Therapeutic Interventions Therapeutic Interventions Home Exercise Program,Joint Mobilizations,Manual Therapy, Neuromuscular Re-education, Self-Care/Home Management,Soft Tissue Mobilization,Taping, Therapeutic Activities, Therapeutic Exercises Modalities Cold Pack/Ice Massage,Electric Stimulation,Hot Packs Next Visit Focus/Plan Next Note Type Treatment Note Next Visit Plan Review HEP: assess response to K tape. recheck shld ER, D1 flexion; continue STM, scapular mobs; consider modified plantigrade activities in preparation for return to yoga
--- NOTE | 2021-09-14 15:06 | PT.OPDS ---
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 Family Provider Primary Care Provider Referring Provider Specialty: Medical Address: [address] [place] [address], [facility] Email: [email or web address] Visit Number Visit Number 02/14 Discharge Summary PT-OP-B Current Condition Start: 08/01/21 12:54 Freq: Status: Active Protocol: Document 08/02/21 16:00 AW (Rec: 08/01/21 13:01 AW [id number]) Current Condition History of Current Condition Onset Date gradual; ~ 3 months Current Complaints right shoulder and neck pain History of Current Condition Elli began babysitting her 2 yo great niece in April and found herself picking up and holding the child frequently. She started to have shoulder and neck pain on the right side over the first month which has continued. She describes her pain as deep and achey. It starts in the right upper trap and extends up behind her ear and down to collar bone. The pain is affecting her driving, reading, texting. She finds relief with getting the arm into extension or stretching into flexion. Pain is fairly constant. Heat helps. Some stretches help. Pt notices her posture is getting sloppier recently. She has trouble carrying grocery bags. Taking shirts off has become difficult. She fears she may be overdoing it with her left shoulder and starting to fee achey there as well. Taking shirts off has been problematic. 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 Her shoulder pain is interfering with her ability to complete her job duties such as lifting, wiping, and cleaning. Of note, pt did fracture her left great toe distal phalanx around the same time she started to have shoulder pain but does not feel they are related. Pt has felt unable to participate in her regular yoga practice. She is right-hand dominant. Prior Treatments and Tests Pt has used heat and ice with some relief Future Testing and Treatments Planned None identified Treatment Goals Patient/Caregiver Goals Return to yoga, be able to lift and carry her 2 yo niece, be able to complete job duties with less pain. Personal Factors Other Personal Factors That May Effect (+) good awareness of posture Therapy/Recovery and breathing mechanics PT-OP-C Subjective Start: 08/01/21 12:54 Freq: Status: Active Protocol: Document 08/25/21 15:17 AW (Rec: 08/25/21 16:02 AW [id number]) OP-PT Subjective Patient Comments Patient Comments Went into total rest mode yesterday afternoon - not driving car, not using arm. Just using tennis ball self STM and some stretches. Wants advice on how to safely interact with toddler. PT-OP-F Manual Assessment Start: 08/01/21 12:54 Freq: Status: Active Protocol: Document 08/02/21 16:00 AW (Rec: 08/02/21 16:38 AW [id number]) Manual Assessments Soft Tissue Assessment Soft Tissue Mobility Assessment Increased density in right scalenes, SCM, pec minor and upper trapezius compared with left. Joint Mobility Assessment Joint Mobility Assessment GH posterior and inferior glides WNL bilaterally. No point tenderness at A/C or S/C joints. PT-OP-J Posture/Palpation/Skin Start: 08/01/21 12:54 Freq: Status: Active Protocol: Document 08/02/21 16:00 AW (Rec: 08/02/21 16:38 AW [id number]) Posture Evaluation Position Sitting Head/C-Spine Posture Forward Head Shoulder Posture (L) Rounded,(R) Rounded Scapula Posture (L) Protracted,(R) Protracted PT-OP-K Range of Motion Start: 08/01/21 12:54 Freq: Status: Active Protocol: Document 08/02/21 16:00 AW (Rec: 08/02/21 16:38 AW [id number]) Cervical Spine Range of Motion Cervical Spine Active Testing Position Sitting Flexion 30 Extension 50 Rotation Left 53 Rotation Right 48 Lateral Flexion Left 30 Lateral Flexion Right 25 ROM Limitations Soft Tissue Tightness,Pain Shoulder Goniometric Range of Motion Shoulder Right Active Testing Position Sitting Flexion 170 Extension 36 Abduction 150 External Rotation at 0 degrees Abduction 50 Internal Rotation Behind Back (text) L3 Left Active Testing Position Sitting Flexion 170 Extension 45 Abduction 170 External Rotation at 0 degrees Abduction 75 Internal Rotation Behind Back (text) T5 Elbow/Forearm Range of Motion Elbow/Forearm bilat Elbow/Forearm ROM WFL Yes PT-OP-L Special Tests Start: 08/01/21 12:54 Freq: Status: Active Protocol: Document 08/02/21 16:00 AW (Rec: 08/02/21 16:52 AW [id number]) Special Tests Cervical Spine Special Tests Spurling's Test Test Results negative bilaterally Shoulder Special Tests Painful Arc Test Results positive at 120 degrees on the right AC Joint Compression Test Results negative bilaterally Bridges Edgar Impingement Test Results positive right; negative left Drop Arm Rotator Cuff Test Results negative PT-OP-M Strength Start: 08/01/21 12:54 Freq: Status: Active Protocol: Document 08/02/21 16:00 AW (Rec: 08/02/21 16:52 AW [id number]) Shoulder Strength Shoulder Manual Muscle Testing bilat Flexion 5 Normal Extension 5 Normal Abduction (C5) 5 Normal External Rotation 4+ Good+ Internal Rotation 5 Normal Comments Strength is good and symmetrical but resisted flexion, abduction, and external rotation reproduce pain symptoms on the right side. Elbow/Forearm Strength Elbow and Forearm Manual Muscle Testing bilat Flexion (C6) 5 Normal Extension (C7) 5 Normal Comments Resisted elbow flexion on the right reproduces anterior shoulder pain PT-OP-T Assessment and Plan Start: 08/01/21 12:54 Freq: Status: Active Protocol: Document 09/14/21 15:05 AW (Rec: 12/28/21 15:06 AW [id number]) Physical Therapy Plan Discharge Physical Therapy Discharge Reasons No Longer Attending PT Discharge Comments Pt made limited progress in therapy and had to truncate her treatment due to insurance restrictions. Pt has exhausted her benefit and chooses to discharge from PT
== END 2022-01-04 14:05 ==
LOC: PHYS 15:15
PROVIDERS: Family Provider Registered Nurse; PCP Registered Nurse; Referring Provider Registered Nurse; Visit Provider Registered Nurse
DX: M25.511 Pain in right shoulder (principal); R29.3 Abnormal posture
CPT/HCPCS: 97110; 97140; 97161; 97535

== ENCOUNTER → 2022-12-12 06:59 | Outpatient (CLI) | payer OTHER, MEDICAID, SELFPAY ==
[2022-12-12 08:10] LABS: Hematocrit 37.6 % (36-46); Hemoglobin 12.8 g/dL (12.0-16.0); Mean Corpuscular HGB Conc 34.1 % (30-36); Mean Corpuscular Hemoglobin 31.3 PG (26-34); Mean Corpuscular Volume 91.6 fL (80-100); Platelet Count 261 X10^3/uL (150-400); Red Blood Cell Count 4.11 X10^6/uL (4.0-5.2); Red Cell Distribution Width 12.4 % (11.6-14.8); White Blood Cell Count 5.1 X10^3/uL (4.5-11.0)
[2022-12-12 08:47] LABS: Alanine Aminotransferase 41 IU/L (<35); Albumin 4.3 g/dL (3.5-5.0); Albumin Globulin Ratio 1.7 (1.0-2.8); Alkaline Phosphatase 46 U/L (38-126); Aspartate Aminotransferase 35 IU/L (14-36); BUN Creatinine Ratio 18.9 (6-22); Bilirubin Total 0.5 mg/dL (0.2-1.3); Blood Urea Nitrogen 10 mg/dL (7-17); Carbon Dioxide 30 mmol/L (22-32); Chloride 101 mmol/L (98-107); Cholesterol 182 mg/dL (140-199); Estimated Glomerular Filt Rate > 60 mL/min (>60); Globulin 2.6 g/dL (1.7-4.1); Glucose 91 mg/dL (70-100); HDL Cholesterol 70 mg/dL (40-60); HEMOLYSIS < 15 (0-50); LDL Cholesterol Calculated 104 mg/dL (<100); Potassium 4.2 mmol/L (3.4-5.1); Sodium 137 mmol/L (137-145); Total Protein 6.9 g/dL (6.3-8.2); Triglycerides 40 mg/dL (35-150)
[2022-12-12 09:11] LABS: TSH w/ Reflex to FT4 3.71 uIU/mL (0.47-4.68)
== END ==
PROVIDERS: PCP Registered Nurse Diabetes Educator; Referring Provider Registered Nurse Diabetes Educator; Visit Provider Registered Nurse Diabetes Educator
DX: Z00.00 Encounter for general adult medical examination without abnormal findings (principal)
CPT/HCPCS: 36415; 80053; 80061; 84443; 85027

== ENCOUNTER → 2023-03-22 07:24 | Outpatient (CLI) | payer OTHER, MEDICAID, SELFPAY ==
[2023-03-22 09:43] LABS: Alanine Aminotransferase 26 IU/L (<35); Albumin 4.1 g/dL (3.5-5.0); Albumin Globulin Ratio 1.6 (1.0-2.8); Alkaline Phosphatase 43 U/L (38-126); Aspartate Aminotransferase 28 IU/L (14-36); Bilirubin Total 0.5 mg/dL (0.2-1.3); Bilirubin Unconjugated 0.5 mg/dL (0.0-1.1); Globulin 2.6 g/dL (1.7-4.1); HEMOLYSIS < 15 (0-50); Total Protein 6.7 g/dL (6.3-8.2)
== END ==
PROVIDERS: PCP Registered Nurse Diabetes Educator; Referring Provider Registered Nurse Diabetes Educator; Visit Provider Registered Nurse Diabetes Educator
DX: R74.8 Abnormal levels of other serum enzymes (principal)
CPT/HCPCS: 36415; 80076

== ENCOUNTER → 2023-10-03 13:23 | Outpatient (CLI) | payer OTHER, MEDICAID, SELFPAY | PROVIDERS: PCP Registered Nurse Diabetes Educator; Visit Provider Nurse Practitioner Family | DX: J31.2 Chronic pharyngitis (principal) | CPT/HCPCS: 87070; 87880 ==

== ENCOUNTER → 2024-01-14 07:03 | Outpatient (CLI) | payer OTHER, MEDICAID, SELFPAY ==
[2024-01-14 08:38] LABS: Alanine Aminotransferase 22 IU/L (<35); Albumin 4.4 g/dL (3.5-5.0); Albumin Globulin Ratio 1.7 (1.0-2.8); Alkaline Phosphatase 47 U/L (38-126); Aspartate Aminotransferase 34 IU/L (14-36); Bilirubin Total 0.7 mg/dL (0.2-1.3); Blood Urea Nitrogen 7 mg/dL (7-17); Calcium 8.9 mg/dL (8.4-10.2); Carbon Dioxide 27 mmol/L (22-32); Chloride 106 mmol/L (98-107); Cholesterol 204 mg/dL (140-199); Estimated Glomerular Filt Rate > 60 mL/min (>60); Globulin 2.6 g/dL (1.7-4.1); Glucose 98 mg/dL (70-100); HDL Cholesterol 77 mg/dL (40-60); HEMOLYSIS 30 (0-50); LDL Cholesterol Calculated 118 mg/dL (<100); Potassium 4.2 mmol/L (3.4-5.1); Sodium 137 mmol/L (137-145); Triglycerides 43 mg/dL (35-150)
[2024-01-14 08:42] LABS: Add Manual Diff / Slide Review NO; Basophils Absolute Auto 0 /uL (0-100); Basophils Percent Auto 0.8 % (0-2); Eosinophils Absolute Auto 0 /uL (0-450); Eosinophils Percent Auto 0.7 % (2-4); Hemoglobin 13.1 g/dL (12.0-16.0); Lymphocytes Absolute Auto 1900 /uL (1100-4500); Lymphocytes Percent Auto 31.8 % (25-40); Mean Corpuscular HGB Conc 34.4 % (30-36); Mean Corpuscular Hemoglobin 31.7 PG (26-34); Mean Corpuscular Volume 92.2 fL (80-100); Monocytes Absolute Auto 500 /uL (0-900); Monocytes Percent Auto 7.9 % (3-14); Neutrophils Absolute Auto 3400 /uL (1500-7000); Neutrophils Percent Auto 58.8 % (50-75); Platelet Count 227 X10^3/uL (150-400); Red Blood Cell Count 4.12 X10^6/uL (4.0-5.2); Red Cell Distribution Width 12.4 % (11.6-14.8); White Blood Cell Count 5.8 X10^3/uL (4.5-11.0)
[2024-01-14 09:05] LABS: TSH w/ Reflex to FT4 3.69 uIU/mL (0.47-4.68)
== END ==
LOC: LAB 07:05
PROVIDERS: PCP Registered Nurse Diabetes Educator; Referring Provider Registered Nurse Diabetes Educator; Visit Provider Registered Nurse Diabetes Educator
DX: E78.5 Hyperlipidemia, unspecified (principal); E61.1 Iron deficiency; R74.8 Abnormal levels of other serum enzymes
CPT/HCPCS: 36415; 80053; 80061; 84443; 85025

== ENCOUNTER → 2024-07-01 10:32 | Outpatient (CLI) | payer OTHER, SELFPAY ==
[2024-07-01 11:43] LABS: COVID-19 CEPHEID 4-PLEX PCR Negative (Negative); Influenza A - CEPHEID Flu A NEGATIVE (NEGATIVE); Influenza B - CEPHEID Flu B NEGATIVE (NEGATIVE); Respiratory Syncytial Virus Negative (Negative)
== END ==
PROVIDERS: PCP Registered Nurse Diabetes Educator; Visit Provider Physician Assistant
DX: R05.1 Acute cough (principal)
CPT/HCPCS: 87635; 87400; 87420; 0241U

== ENCOUNTER → 2024-08-07 11:19 | Outpatient (CLI) | payer OTHER, SELFPAY ==
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
[2024-08-07 12:50] LABS: Erythrocyte Sedimentation Rate 13 MM/HR (0-20)
[2024-08-07 13:09] LABS: C-Reactive Protein Quant < 0.5 mg/dL (<1.0); Uric Acid 3.6 mg/dL (2.5-6.2)
[2024-08-07 13:11] LABS: Rheumatoid Factor < 8.6 IU/mL (<12.0)
[2024-08-11 13:36] LABS: ANA Screen, IFA Negative (.)
== END ==
PROVIDERS: PCP Registered Nurse Diabetes Educator; Referring Provider Physician Assistant; Visit Provider Physician Assistant
DX: M81.0 Age-related osteoporosis without current pathological fracture (principal); M79.89 Other specified soft tissue disorders
CPT/HCPCS: 36415; 73130; 84550; 85651; 86038; 86140; 86430